=== PATIENT | female | born 1940 | race Caucasian/White ===

== ENCOUNTER → 2017-04-05 | Outpatient (CLI) | payer OTHER ==
[~2017-04-05] MED LIST: HYDC25 PO; LEVO25TA34 PO; LISI40TA PO; PRLSR20 PO
[2017-04-05 17:42] LABS: BASO % 0.3 %; BASO ABS # 0.03 K/uL (0-0.2); EOS % 1.7 %; HEMATOCRIT 39.3 % (37-47); HEMOGLOBIN 12.8 g/dL (12.0-16.0); IG# 0.03 K/uL (0.00-0.02); LYMPH % 25.2 %; LYMPH ABS # 2.97 K/uL (1.2-3.4); MEAN CORPUSCULAR HEMOGLOBIN 29.6 pg (25-34); MEAN CORPUSCULAR HGB CONC 32.6 g/dl (32-36); MEAN PLATELET VOLUME 10.8 fL (7.4-10.4); MONO % 7.1 %; MONO ABS # 0.84 K/uL (0.11-0.59); NEUT % 65.4 %; PLATELET COUNT 272 K/uL (130-400); RED CELL DISTRIBUTION WIDTH CV 13.5 % (11.5-14.5); WHITE BLOOD COUNT 11.77 K/uL (4.8-10.8)
[2017-04-05 18:11] LABS: ALBUMIN 4.1 gm/dl (3.4-5.0); ALT/SGPT 36 U/L (12-78); CREATININE 0.92 mg/dl (0.60-1.20); URIC ACID 6.5 mg/dl (2.6-7.2)
[2017-04-05 18:14] LABS: ALKALINE PHOSPHATASE 99 U/L (45-117); AST/SGOT 22 U/L (15-37); TOTAL PROTEIN 8.3 gm/dl (6.4-8.2); TRANSFERRIN 269 mg/dl (200-360)
== END | disposition home or self-care (01) ==
LOC: C.LAB1850 17:06
PROVIDERS: ATTEND Internal Medicine Rheumatology
DX: M10.9 Gout, unspecified (principal); M79.672 Pain in left foot; E79.0 Hyperuricemia without signs of inflammatory arthritis and tophaceous disease

== ENCOUNTER → 2017-04-12 | Outpatient (CLI) | payer OTHER ==
[~2017-04-12] MED LIST changes: +GADAVIST IV PRN
--- NOTE | 2017-04-12 14:01 | DIAGNOSTIC IMAGING REPORT ---
LEFT FOREFOOT MRI HISTORY: M10.9 [id number] Left foot pain TECHNIQUE: Multiplanar multisequence MRI of the left forefoot was performed both before and after the intravenous administration of contrast. COMPARISON STUDY: None. FINDINGS: Marrow edema within the mid to distal first metatarsal and proximal phalanx of the first toe. There is also marrow edema within the medial sesamoid bone at the head of the first metatarsal. There is soft tissue edema surrounding the first MTP joint. There is associated enhancement at the head of the first metatarsal and within the surrounding soft tissue edema. Moderate cartilage space narrowing with marginal osteophytes at the first MTP joint consistent with degenerative change. Questionable small erosion versus degenerative change at the head of the first metatarsal. This measures 4 mm and is best seen on coronal image 10. There is a bony bunion at the medial head of the first metatarsal. Mild dorsal subcutaneous edema within the forefoot. The flexor and extensor tendons are intact. The remaining visualized osseous structures of the forefoot are unremarkable. IMPRESSION: 1. Marrow and soft tissue edema surrounding the first MTP joint with associated enhancement. There is a questionable 4 mm erosion at the head of the first metatarsal. These findings are nonspecific but could be due to long-standing degenerative change or possibly an inflammatory arthropathy such as gout. 2. No fracture or dislocation within the forefoot. Electronically signed by: Swapnil Webb M.D. 04/12/2017 1:59 PM Dictated Date/Time: 04/12/2017 1:50 PM
== END | disposition home or self-care (01) ==
LOC: C.MRI 12:20
PROVIDERS: ATTEND Internal Medicine Rheumatology
DX: M10.9 Gout, unspecified (principal); M79.672 Pain in left foot

== ENCOUNTER 2020-02-05 05:07 | Inpatient (IN) ==
--- NOTE | 2020-01-23 09:30 | PAT Medication Instructions ---
Medication Instructions Date of Service January 23, 2020 Home Medications apple cider vinegar 500 mg PO BID ascorbic acid (vitamin C) [Vitamin C] 250 mg PO BID aspirin [Aspir-81] 81 mg PO QAM calcium carbonate [Calcium 500] 500 mg PO BID lisinopril 40 mg PO QAM multivitamin 1 tab PO BID omega 1-dqe-euk-fish oil [Fish Oil] 1 cap PO BID omeprazole 20 mg PO QAM turmeric 400 mg PO QAM STOP taking 2 weeks before surgery (or as soon as possible if surgery is within 2 weeks) apple cider vinegar 500 mg PO BID omega 2-jyc-dli-fish oil [Fish Oil] 1 cap PO BID turmeric 400 mg PO QAM DO NOT take the morning of surgery ascorbic acid (vitamin C) [Vitamin C] 250 mg PO BID calcium carbonate [Calcium 500] 500 mg PO BID lisinopril 40 mg PO QAM multivitamin 1 tab PO BID Take morning of surgery With a small sip of water, OTHERWISE NOTHING TO EAT OR DRINK AFTER MIDNIGHT: omeprazole 20 mg PO QAM Take evening before surgery ascorbic acid (vitamin C) [Vitamin C] 250 mg PO BID calcium carbonate [Calcium 500] 500 mg PO BID multivitamin 1 tab PO BID Other Notes If you have any questions please call us at [phone] or [phone] or [phone] or [phone]
--- NOTE | 2020-01-24 08:40 | History & Physical Report ---
Date of Service January 24, 2020 Date of Surgery: 02/04/20 procedure: Right Total Knee Arthroplasty Assessment & Plan (1) Arthritis of right knee: Risks and benefits of procedure discussed in detail today, patient would like to proceed with a Right total knee replacement at [facility] as scheduled. will obtain medical clearance from Dr Suresh prior to surgery as well as obtain PATs at [facility]. Will place on ASA 81mg po bid x 1 month post op, f/u 2 weeks post op for routine post-operative care and x-ray, sooner if having any problems. will make arrangements for HHPT at the time of discharge. At this point in time, has failed conservative measures and would like to proceed with surgical intervention. The risks and benefits have been discussed including, but not limited to, risk of infection, nerve injury, stiffness, loss of motion, failure to improve, etc. Reasonable outcomes and options of treatment were discussed. An explanation of appropriate alternatives to the procedure that may be advantageous were discussed and their risks and benefits, as well as the risks and benefits of not proceeding with treatment. I offered to answer any additional inquiries concerning the treatment involved. All the patient's questions were answered. The patient is agreeable, understanding of the treatment plan and alternatives, and wishes to proceed with the treatment plan. History of Present Illness Chief Complaint: Right knee pain Primary Care Provider: Madeline Suresh MD Roopa is a 79 year old female who complains of Right knee pain, presents for pre-op evaluation prior to a Right total knee replacement by dr Daniels at [facility]. She complains of pain, crepitus, decreased range of motion, instability and st iffness in her right knee. she states that the symptoms have been chronic and non-traumatic. Currently the patient states that the symptoms are moderate- severe. The pain is described as aching, sharp and throbbing. The symptoms are aggravated by ascending stairs, daily activities, first steps while awake walking. She is unable to NSAIDs, Aleve causes heart palpitations. She has been treated with previous visco and cortisone injections in the past without much relief. Allergies Allergy/AdvReac Type Severity Reaction Status Date / Time Penicillins Allergy Mild HIVES, Verified 01/15/20 13:12 TROUBLE BREATHING allopurinol Allergy Unknown TOTAL BODY Verified 01/15/20 13:12 RASH, FLUSHING amoxicillin Allergy Unknown HIVES Verified 01/15/20 13:12 febuxostat Allergy Unknown EYES Verified 01/15/20 13:12 SWELLED SHUT naproxen Allergy Unknown PALPATATION Verified 01/15/20 13:12 S Sulfa (Sulfonamide Allergy Unknown PT UNSURE Verified 01/15/20 13:12 Antibiotics) OF RXN lactose AdvReac Intermediate Gastrointestinal Verified 01/15/20 13:12 Upset nickel AdvReac Mild Redness of Verified 01/15/20 13:12 Skin Home Medications Home Medications Medication Instructions Recorded Confirmed Type apple cider vinegar 500 mg PO BID 01/15/20 01/15/20 History ascorbic acid (vitamin C) [Vitamin 250 mg PO BID 01/15/20 01/15/20 History C] aspirin [Aspir-81] 81 mg PO QAM 01/15/20 01/15/20 History calcium carbonate [Calcium 500] 500 mg PO BID 01/15/20 01/15/20 History lisinopril 40 mg PO QAM 01/15/20 01/15/20 History multivitamin 1 tab PO BID 01/15/20 01/15/20 History omega 3-aqb-fap-fish oil [Fish Oil] 1 cap PO BID 01/15/20 01/15/20 History omeprazole 20 mg PO QAM 01/15/20 01/15/20 History turmeric 400 mg PO QAM 01/15/20 01/15/20 History Past Med/Surg History Medical History DVT (deep venous thrombosis) RLE (15+ years ago) after long travel Fatty liver Gout Hiatal hernia sliding Hypertension Hypothyroidism euthyroid off meds, under surveillance Kidney cysts under surveillance Myocardial Infarction possible [place] 10+ years ago, medically managed Neuropathy of both feet Osteoarthritis Osteoporosis Spinal stenosis Torn rotator cuff right Surgical History History of bilateral tubal ligation History of bladder surgery sling History of hysterectomy History of myringotomy right History of surgery on left wrist History of tonsillectomy History of tooth extraction Hx of cervical spine surgery 3 DISCS REMOVED THEN SPACERS/CAGE> 2011 ROM UP AND DOWN IS OK. SIDE TO SIDE IS LIMITED Hx of elbow surgery LEFT Social History Smoking Status: Never smoker Second Hand Exposure: No; Do You Dip or Chew Tobacco: No; Tobacco Cessation Education Requested by Patient: No Hx Alcohol Use: Yes Alcohol type: wine Hx Substance Use: No Preferred Language: Polish Communication Ability: Effective Manager Of Organizational Development Required: No Beliefs That Will Affect Care: None Current Living Situation: Alone Other Information That Helps Us Care for You: No Feels Safe at Home: Yes Safety Concerns: Feels Safe At This Time Assistive Devices: Cane, Denture - Upper, Glasses and Walker Review of Systems Review of Systems: All systems reviewed & are unremarkable except as noted in HPI & below Constitutional: no fever, no chills and no sweats Respiratory: no cough and no dyspnea Cardiovascular: no chest pain, no dyspnea and no orthopnea Gastrointestinal: no abdominal pain, no nausea and no vomiting Musculoskeletal: as per Subjective / HPI Physical Exam Physical Exam: Ht: 5ft WT: 75.75kg BP: 144/84 Pulse: 118 Constitutional: WD/WN, vitals as above no acute distress Respiratory: normal respiratory effort, lungs clear to auscultation no respiratory distress, no labored breathing and does not use accessory muscles Cardiovascular: RRR, no murmur, no edema Gastrointestinal (Abdomen): normal bowel sounds, soft, nontender, no hepatosplenomegaly Musculoskeletal: Knee: + knee abnormal to inspection (Right Knee: ), + effusion (+1 effusion), + limited ROM of knee (ROM 0/3/110), + knee ROM with crepitation, + joint line tenderness (medial joint line) and + Venessa's sign positive; no deformity, no skin erythema, no ecchymosis, no valgus laxity, no varus laxity, anterior drawer test negative, Andrey's sign negative and pivot shift test negative Results & Data Results & Data ([facility]) Laboratory Results Laboratory Results WBC 9.26 K/uL (4.8-10.8) 01/24/20 12:20 RBC 4.68 M/uL (4.2-5.4) 01/24/20 12:20 Hgb 13.4 g/dL (12.0-16.0) 01/24/20 12:20 Hct 42.6 % (37-47) 01/24/20 12:20 MCV 91.0 fL (80-100) 01/24/20 12:20 MCH 28.6 pg (25-34) 01/24/20 12: MCHC 31.5 g/dL (32-36) L 01/24/20 12: RDW Std Deviation 44.2 fL (36.4-46.3) 01/24/20 12: RDW Coeff of Raul 13.4 % (11.5-14.5) 01/24/20 12: Plt Count 286 K/uL (130-400) 01/24/20 12:20 MPV 11.0 fL (7.4-10.4) H 01/24/20 12: Immature Gran % (Auto) 0.2 % 01/24/20 12: Neut % (Auto) 64.5 % 01/24/20 12: Lymph % (Auto) 23.9 % 01/24/20 12: Scurry % (Auto) 9.0 % 01/24/20 12: Eos % (Auto) 2.2 % 01/24/20 12:20 Baso % (Auto) 0.2 % 01/24/20 12: Neut # (Auto) 5.98 K/uL (1.4-6.5) 01/24/20 12: Lymph # (Auto) 2.21 K/uL (1.2-3.4) 01/24/20 12:20 Scurry # (Auto) 0.83 K/uL (0.11-0.59) H 01/24/20 12:20 Eos # (Auto) 0.20 K/uL (0-0.5) 01/24/20 12:20 Baso # (Auto) 0.02 K/uL (0-0.2) 01/24/20 12: Immature Gran # (Auto) 0.02 K/uL (0.00-0.02) 01/24/20 12: PT 10.6 Seconds (9.0-12.0) 01/24/20 12: INR 1.0 (0.9-1.1) 01/24/20 12: APTT 28.7 Seconds (21.0-31.0) 01/24/20 12: PTT Ratio 1.0 01/24/20 12:20 Sodium 141 mmol/L (136-145) 01/24/20 12:20 Potassium 4.2 mmol/L (3.5-5.1) 01/24/20 12:20 Chloride 105 mmol/L (98-107) 01/24/20 12:20 Carbon Dioxide 29 mmol/L (21-32) 01/24/20 12:20 Anion Gap 7.0 (3-11) 01/24/20 12:20 BUN 12 mg/dl (7-18) 01/24/20 12:20 Creatinine 0.94 mg/dl (0.6-1.2) 01/24/20 12:20 Est Cr Clr Drug Dosing 44.7 ml/min 01/24/20 12:20 Est GFR ( Amer) 67.3 01/24/20 12:20 Est GFR (Non-Af Amer) 58.1 01/24/20 12:20 BUN/Creatinine Ratio 12.4 (10-20) 01/24/20 12:20 Glucose 85 mg/dl (70-99) 01/24/20 12:20 Estimat Average Glucose 120 mg/dl 01/24/20 12:20 Hemoglobin A1c 5.8 % (4.5-5.6) H 01/24/20 12:20 Calcium 9.9 mg/dl (8.5-10.1) 01/24/20 12:20 Albumin 4.0 gm/dl (3.4-5.0) 01/24/20 12:20 Urine Color Yellow 01/24/20 12:20 Urine Appearance Clear (Clear) 01/24/20 12:20 Urine pH 6.5 (4.5-7.5) 01/24/20 12:20 Ur Specific [place] 1.006 (1.000-1.030) 01/24/20 12:20 Urine Protein Negative (Negative) 01/24/20 12:20 Urine Glucose (UA) Negative (Negative) 01/24/20 12:20 Urine Ketones Negative (Negative) 01/24/20 12:20 Urine Blood Negative (Negative) 01/24/20 12:20 Urine Nitrite Negative (Negative) 01/24/20 12:20 Urine Bilirubin Negative (Negative) 01/24/20 12:20 Urine Urobilinogen Negative (Negative) 01/24/20 12:20 Ur Leukocyte Esterase Negative (Negative) 01/24/20 12:20 Blood Type O Positive 01/24/20 12:20 Antibody Screen NEGATIVE 01/24/20 12:20 Diagnostic Findings Right Knee X-ray: Right knee series showing advanced degenerative changes to the right knee, narrowing of the medial compartment and patello-femoral joint with patellar spurring noted, findings showing joint space narrowing of the medial compartment and patello-femoral joint, osteophyte formation and subchondral sclerosis noted. overall varus alignment. no acute bony pathology noted.
--- NOTE | 2020-01-24 11:21 | Anesthesiology Consultation ---
Date of Service January 24, 2020 Assessment & Plan (1) Encounter for pre-operative examination: - Per assessment on 01/23: Travel screen- Travel to [place] for doctor appt. Uses PPE. No known COVID-19 positive contacts or current COVID-19 related symptoms. Surgeon arranging preop COVID testing. Awaiting results. - Possible difficult intubation: d/t decreased cervical extension s/p cervical fusion + anatomy Chart Review Chart Review: Acceptable Risk for Surgery and Patient seen in Pre Admission Testing Teaching & Discussion Pre-Anesthesia Teaching/Discussion Notes: Instructed NPO after midnight before surgery,except medications with 15 cc of water. Medication instructions provided according to the PAT guidelines. History Surgery Operation Date: 02/04/20 14:35 Proposed Procedures p Right Total Knee Arthroplasty - El Daniels DO Height/Weight Height: 5 ft Weight: 75.2 kg Allergies Allergy/AdvReac Type Severity Reaction Status Date / Time Penicillins Allergy Mild hives, Verified 01/24/20 15:15 dyspnea allopurinol Allergy Unknown diffuse Verified 01/24/20 15:15 body rash, flushing amoxicillin Allergy Unknown hives Verified 01/24/20 15:15 febuxostat Allergy Unknown eyes Verified 01/24/20 15:15 swelled shut Sulfa (Sulfonamide Allergy Unknown unknown Verified 01/24/20 15:15 Antibiotics) reaction lactose AdvReac Intermediate GI upset Verified 01/24/20 15:15 nickel AdvReac Mild skin Verified 01/24/20 15:15 redness naproxen AdvReac Unknown palpitation Verified 01/24/20 15:15 s Medications Home Medications Medication Instructions Recorded Confirmed Last Taken apple cider vinegar 500 mg PO BID 01/15/20 01/15/20 Unknown ascorbic acid (vitamin C) [Vitamin 250 mg PO BID 01/15/20 01/15/20 Unknown C] aspirin [Aspir-81] 81 mg PO QAM 01/15/20 01/15/20 Unknown calcium carbonate [Calcium 500] 500 mg PO BID 01/15/20 01/15/20 Unknown lisinopril 40 mg PO QAM 01/15/20 01/15/20 Unknown multivitamin 1 tab PO BID 01/15/20 01/15/20 Unknown omega 6-swk-nxk-fish oil [Fish Oil] 1 cap PO BID 01/15/20 01/15/20 Unknown omeprazole 20 mg PO QAM 01/15/20 01/15/20 Unknown turmeric 400 mg PO QAM 01/15/20 01/15/20 Unknown Past Medical History Medical History DVT (deep venous thrombosis) RLE (15+ years ago) after long travel Fatty liver Gout Hiatal hernia sliding Hypertension Hypothyroidism euthyroid off meds, under surveillance Kidney cysts under surveillance Myocardial Infarction possible [place] 10+ years ago, medically managed Neuropathy of both feet Osteoarthritis Osteoporosis Spinal stenosis Torn rotator cuff right Exercise / Class Metabolic Activity III < 4 Walking/Shop/Light housework (one flight of stairs (no chest pain, + rare SOB)) Past Surgical History Surgical History History of bilateral tubal ligation History of bladder surgery sling History of hysterectomy History of myringotomy right History of surgery on left wrist History of tonsillectomy History of tooth extraction Hx of cervical spine surgery discectomy x3 levels + CAGE (2011) Hx of elbow surgery LEFT Past Anesthesia History Other Patients states that 25 years ago, she had bladder tac procedure at [place]- patient states she was unable to move/respond after anesthesia emergence- per patient, she was told that she was "given too much anesthesia." Patient has had subsequent surgeries/anesthesia including cervical fusion without similar type of reaction/no issues (no anesthesia records available). Mother- post-op mental status changes- ? worsening of dementia History of PONV No Hx of PONV and Hx of Motion Sickness (childhood) Social History Smoking Status: Never smoker Do You Dip or Chew Tobacco: No Hx Alcohol Use: Yes Alcohol type: wine alcohol intake frequency: holidays/special occasions only Hx Substance Use: No substance use type: does not use Review of Systems Patient denies chest pain, shortness of breath, fever, chills, cough, wheezing, palpitations. Physical Exam Vital Signs VITALS BP 145/81 P 98 TEMP 98.4 SP02 98%RA RESP 16 PHYSICAL Decreased cervical extension s/p cervical fusion Full TMJ range of motion. TMD 2.5 finger breaths (small chin) Mallampati Score 4 (small oral opening) Dentition: 5 teeth on lower remaining, + lower partial, full upper plate Lungs: clear throughout to auscultation Cardiac: regular rate and rhythm, no murmurs noted Spine: normal Carotid arteries: negative bruit Extremities: no edema Testing Laboratory Results 01/24/20 12:20 01/24/20 12:20 PT 10.6 Seconds (9.0-12.0) 01/24/20 12:20 INR 1.0 (0.9-1.1) 01/24/20 12:20 APTT 28.7 Seconds (21.0-31.0) 01/24/20 12:20 Hemoglobin A1c 5.8 % (4.5-5.6) H 01/24/20 12:20 Urine Color Yellow 01/24/20 12:20 Urine Appearance Clear (Clear) 01/24/20 12:20 Urine pH 6.5 (4.5-7.5) 01/24/20 12:20 Ur Specific [place] 1.006 (1.000-1.030) 01/24/20 12:20 Urine Protein Negative (Negative) 01/24/20 12:20 Urine Glucose (UA) Negative (Negative) 01/24/20 12:20 Urine Ketones Negative (Negative) 01/24/20 12:20 Urine Nitrite Negative (Negative) 01/24/20 12:20 Ur Leukocyte Esterase Negative (Negative) 01/24/20 12:20 Blood Type O Positive 01/24/20 12:20 Antibody Screen NEGATIVE 01/24/20 12:20 Electrocardiogram Date: 01/24/20 ST at 102. RBBB. Chest X-Ray Date: 01/24/20 FINDINGS: PA and lateral chest radiographs are obtained. No prior studies are available for comparison at the time of dictation. The heart is top normal for projection. Nonspecific interstitial thickening is likely chronic. There is mild bibasilar scarring/atelectasis. No airspace consolidation or pleural effusion is identified. There is no pneumothorax. The skeletal structures are osteopenic. The bony thorax appears intact. Fusion hardware is seen in the lower cervical spine. Degenerative change and mild scoliosis is noted in the thoracolumbar spine. Cholecystectomy clips are seen in the right upper quadrant. IMPRESSION: No active disease in the chest.
--- NOTE | 2020-01-24 12:45 | XRay Report ---
TWO VIEW CHEST CLINICAL HISTORY: Preoperative examination. FINDINGS: PA and lateral chest radiographs are obtained. No prior studies are available for compariso n at the time of dictation. The heart is top normal for projection. Nonspecific interstitial thicken ing is likely chronic. There is mild bibasilar scarring/atelectasis. No airspace consolidation or ple ural effusion is identified. There is no pneumothorax. The skeletal structures are osteopenic. The ramy ny thorax appears intact. Fusion hardware is seen in the lower cervical spine. Degenerative change an d mild scoliosis is noted in the thoracolumbar spine. Cholecystectomy clips are seen in the right upp er quadrant. IMPRESSION: No active disease in the chest. ACT 112: Negative or not required by law. Electronically signed by: Mykel Stephens M.D. 01/24/2020 12:43 PM
[2020-01-24 13:45] LABS: Basophils # (auto) 0.02 K/uL (0-0.2); Basophils % (auto) 0.2 %; Eosinophils % (auto) 2.2 %; Hematocrit (blood only) 42.6 % (37-47); Hemoglobin 13.4 g/dL (12.0-16.0); Immature Granulocytes # (auto) 0.02 K/uL (0.00-0.02); Immature Granulocytes % (auto) 0.2 %; Lymphocytes # (auto) 2.21 K/uL (1.2-3.4); Lymphocytes % (auto) 23.9 %; Mean Corpuscular Hemoglobin 28.6 pg (25-34); Mean Corpuscular Hgb Conc 31.5 g/dL (32-36); Monocytes # (auto) 0.83 K/uL (0.11-0.59); Neutrophils # (auto) 5.98 K/uL (1.4-6.5); Neutrophils % (auto) 64.5 %; Platelet Count 286 K/uL (130-400); RDW Coefficient of Variation 13.4 % (11.5-14.5); RDW Standard Deviation 44.2 fL (36.4-46.3); Red Blood Count 4.68 M/uL (4.2-5.4); White Blood Count 9.26 K/uL (4.8-10.8)
[2020-01-24 13:49] LABS: Appearance Urine Clear (Clear); Bilirubin Urine Negative (Negative); Blood Urine Negative (Negative); Color Urine Yellow; Glucose Urine UA Negative (Negative); Ketones Urine Negative (Negative); Leukocyte Esterase Urine Negative (Negative); Nitrite Urine Negative (Negative); Protein Urine Negative (Negative); Specific Gravity Urine 1.006 (1.000-1.030); Urobilinogen Urine Negative (Negative); pH Urine 6.5 (4.5-7.5)
[2020-01-24 13:55] LABS: Partial Thromboplastin Time 28.7 Seconds (21.0-31.0); Prothrombin Time 10.6 Seconds (9.0-12.0)
[2020-01-24 14:04] LABS: BUN Creatinine Ratio 12.4 (10-20); Calcium 9.9 mg/dl (8.5-10.1); Creatinine Clr Calc Pharmacy 44.7 ml/min; Est GFR (African American) 67.3; Est GFR (Non-African American) 58.1; Potassium 4.2 mmol/L (3.5-5.1)
[2020-01-24 14:52] LABS: Estimated Average Glucose 120 mg/dl; Hemoglobin A1C 5.8 % (4.5-5.6)
--- NOTE | 2020-01-24 18:20 | Electrocardiogram Report ---
Test Reason : Blood Pressure : / mmHG Vent. Rate : 102 BPM Atrial Rate : 102 BPM P-R Int : 156 ms QRS Dur : 128 ms QT Int : 370 ms P-R-T Axes : 076 019 063 degrees QTc Int : 482 ms Sinus tachycardia Right bundle branch block Abnormal ECG No previous ECGs available Confirmed by Julio C Mace ([id number]) on 01/24/2020 6:20:22 PM Referred By: El Daniels Confirmed By:Jeremy Mace
[2020-02-05] MEDS ORDERED: GABAPENTIN 300 MG CAP PO SCH (06:00)
[2020-02-05] MEDS ORDERED: METOCLOPRAMIDE HCL 10 MG TABLET PO SCH (06:00)
[2020-02-05] MEDS ORDERED: TRANEXAMIC ACID 1,000 MG **IV Intra-op IV SCH (06:00)
[2020-02-05] MEDS ORDERED: LR 500ML BOLUS, THEN 15ML/HR IV SCH (06:00)
[2020-02-05] MEDS ORDERED: dexAMETHasone 4 MG TAB PO SCH (06:00)
[2020-02-05] MEDS ORDERED: VANCOMYCIN HCL 1,250 MG in SODIUM CHLORIDE 0.9% 250 ML IV SCH (06:00)
[2020-02-05] MEDS ORDERED: FAMOTIDINE 20 MG TAB PO SCH (06:00)
[2020-02-05] MEDS ORDERED: ACETAMINOPHEN 500 MG TAB PO SCH (06:00)
[2020-02-05] MEDS ORDERED: TRANEXAMIC ACID 1,000 MG **IV Pre-op IV SCH (06:00)
[2020-02-05] MEDS ORDERED: BUPIVACAINE 0.5 % 5 MG/1 ML PF 10ML VIAL ONE (06:25)
[2020-02-05] MEDS ORDERED: BUPIVACAINE 0.25% 30 ML VIAL ONE (06:26)
[2020-02-05] MEDS ORDERED: ATROPINE SULFATE 0.1 MG/ML 10ML SYR IV PRN (06:28)
[2020-02-05] MEDS ORDERED: ONDANSETRON INJ 2 MG/ML 2 ML VIAL IV PRN ×2 (06:28→09:57)
[2020-02-05] MEDS ORDERED: fentaNYL citrate 100 MCG/2 ML VIAL IV PRN (06:28)
[2020-02-05] MEDS ORDERED: ePHEDrine sulfate 50 MG/ML AMP IV PRN (06:28)
[2020-02-05] MEDS ORDERED: BACITRACIN INJ 50,000 UNIT VIAL ONE (06:32)
[2020-02-05] MEDS ORDERED: MIDAZOLAM HCL 1 MG/ML 2ML VIAL ONE (06:41)
[2020-02-05] MEDS ORDERED: fentaNYL citrate 100 MCG/2 ML VIAL ONE (06:41)
[2020-02-05] MEDS ORDERED: ROPIVACAINE 0.5% HCL/PF 150 MG, BUPIVACAINE 0.75% MPF 20 ML, EPINEPHrine 30MG/30ML (OR ... INFIL SCH (07:00)
--- NOTE | 2020-02-05 07:04 | History & Physical Bridge Note ---
Date of Service February 05, 2020 History & Physical Bridge Note I have examined the patient, reviewed the History & Physical and in the interval since the performance of the History & Physical I have noted the following changes of clinical significance: no changes noted
[2020-02-05] MEDS ORDERED: PROPOFOL IV EMULSION 10 MG/ML 20 ML VIAL IV ONE (08:02)
--- NOTE | 2020-02-05 08:10 | Operative Report ---
Post Operative Report Pre & Post Diagnosis Operation Date: 02/05/20 07:00 Pre-Op Diagnosis: Unilateral Primary Osteoarthritis, Right Knee Post-Op Diagnosis: Unilateral Primary Osteoarthritis, Right Knee I identified the patient and participated in the time-out.: Yes Procedure Operation Date: 02/05/20 07:00 Actual Procedures p Right Total Knee Arthroplasty, Cemented(Right) -utilized [employer] 2 nonblock total knee arthroplasty size 5 femur 3 tibia 9 polyethylene 29 oval patella El Daniels DO Surgeon El Daniels DO Photostatic Copy Maker Rene GARZA Estimated Blood Loss 5 Findings Consistent with Post-Op Diagnosis Severe end-stage tricompartmental degenerative joint disease 10 degree flexion contracture moderate osteophytes medial and lateral joint lateral with eburnated [id number] subchondral sclerosis subchondral cystic changes moderate large effusion Specimens Bone and cartilage Drains Medium bore Hemovac Anesthesia Type MAC Spinal Regional Complications none Disposition Accompanied Patient To Recovery: No Disposition: Recovery Room Indications Patient presents for right total knee arthroplasty exam attempted conservative measures including physical therapy anti-inflammatories relative rest activity modification corticosteroid injections viscosupplementation the above intraoperative findings were noted. Description of Procedure After proper prepping and draping of the Right lower extremity anterior midline incision was made over the region of the extensor extensor mechanism after meticulous hemostasis was obtained and maintained in subcutaneous tissues a medial parapatellar incision was made The patella was subluxed lateralward the medial lateral gutter were cleaned from any hypertrophic synovitis and scar tissue of the distal femoral block was placed and the distal femoral osteotomy cut was made subsequently the chamfers anterior and posterior osteotomy cuts were made utilizing the 4-in-1 block the tibia was subsequently subluxed anteriorward medial and ateral meniscal remnants were excised in their entirety remnants of the anterior and posterior cruciate ligaments were excised in their entirety excellent exposure of the proximal tibia was obtained the tibial osteotomy guide was placed on the proximal tibial osteotomy cut was made once again the knee was irrigated with copious amounts of sterile saline solution the patella was subsequently everted lateralward thickened scar tissue around the patella was removed the patella was subsequently cut utilizing a freehand technique and was drilled prepared for final preparation and placement of patella socially flexion-extension gaps were checked and the equal and symmetric trials were placed to the appropriate femoral and tibial trials with poly-spacer being placed for equal flexion and extension gaps and full range of motion including extension to 0 and flexion to 140 the trial components after having been taken to recovery range of motion was subsequently removed meticulous hemostasis was obtained and maintained subsequently a knee block injection of joint cocktail including ropivacaine 0.5% 150 mg. Bupivacaine 0.5% epinephrine 1-200,030 mL's toradol 30 mg dexamethasone 4 mg ketamine 10 mg clonidine 100 micrograms normal saline solution 30 mg was infiltrated into the soft tissues of the posterior knee medial lateral gutters and periosteal synovium special attention was paid to protect neurovascular structures at all times subsequently trial components having been removed the knee was irrigated with sterile saline solution. debris was removed the proximal tibia was subsequently prepared and was made ready for the placement of the tibial component tibial component was also cemented and tamped into position the femoral component was subsequently placed and cemented in the position the patellar component was subsequently cemented in position because hemostasis once again obtained and maintained wound having been thoroughly irrigated with debridement and debridement lavage was performed as well as a medial parapatellar incision closed with #1 Vicryl in interrupted fashion subcutaneous was closed with #2 Vicryl skin was closed with skin clips. PA-C was necessary for prepping and drapping as well as wound closure of deep fascia Sub cutaneous tissue and skin and was necessary for the case. A sterile compressive dressing was placed patient was taken to recovery in stable condition of report dictated by Jeremiah I attest to the content of the Intraoperative Record and any orders documented therein. Any exceptions are noted below. I attest to the content of the Intraoperative Record and any orders documented therein. Any exceptions are noted below.
--- NOTE | 2020-02-05 09:31 | XRay Report ---
XR knee RT 1 or 2V routine CLINICAL HISTORY: Surgical Post Op COMPARISON: Right knee radiographs October 12, 2007. FINDINGS: Alignment of the right knee arthroplasty is anatomic. There is no periprosthetic fracture or unexpected radiopaque foreign body. Drains are in place. IMPRESSION: Expected findings following total right knee arthroplasty. ACT 112: Negative or not required by law. Electronically signed by: Too Barillas M.D. 02/05/2020 9:30 AM
[2020-02-05] MEDS ORDERED: HYDROmorphone INJ 1 MG/ML SYRINGE IV PRN (09:57)
[2020-02-05] MEDS ORDERED: METOCLOPRAMIDE HCL INJ 5 MG/ML 2 ML VIAL IV PRN (09:57)
[2020-02-05] MEDS ORDERED: bisacodyL 10 MG SUPP PR PRN (09:57)
[2020-02-05] MEDS ORDERED: NALOXONE HCL 0.4 MG/1 ML VIAL/CARP IV PRN (09:57)
[2020-02-05] MEDS ORDERED: diphenhydrAMINE Capsule 25 MG CAP PO PRN (09:57)
[2020-02-05] MEDS ORDERED: MAGNESIUM HYDROXIDE SUSP 30 ML UDC PO PRN (09:57)
[2020-02-05] MEDS: SODIUM CHLORIDE 0.9% 1000ML 1,000 ML IV SCH ×2 (10:06→21:17)
[2020-02-05] MEDS: CALCIUM CARBONATE 1250MG TAB PO SCH ×2 (11:00→21:09)
[2020-02-05] MEDS: ASCORBIC ACID 500 MG TAB PO SCH ×2 (11:00→21:09)
[2020-02-05] MEDS: DOCUSATE SODIUM 100 MG CAP PO SCH ×2 (11:12→21:09)
[2020-02-05] MEDS: MULTIVITAMIN TAB PO SCH (11:12)
[2020-02-05] MEDS: KETOROLAC TROMETHAMINE 15 MG/ML VIAL IV SCH ×3 (11:12→22:47)
[2020-02-05] MEDS: lisinopril 40 MG TAB PO SCH (11:12)
[2020-02-05] MEDS: ASPIRIN 81 MG ECTAB PO SCH ×2 (11:12→21:09)
[2020-02-05] MEDS: CLINDAMYCIN 600 MG in DEXTROSE 5% 50 ML IV SCH ×2 (13:39→22:47)
[2020-02-05] MEDS: ACETAMINOPHEN 500 MG TAB PO SCH ×2 (13:39→22:47)
--- NOTE | 2020-02-05 14:41 | Anesthesiology Progress Note ---
Date of Service February 05, 2020 Anesthesia Post Procedure Vital Signs Vital Signs: Temp Pulse Pulse Resp BP Pulse Ox 02/05/20 12:54 96 H 16 143/84 H 94 02/05/20 11:55 98 H 16 147/74 H 96 02/05/20 10:59 36.7 C 99 H 16 151/86 H 96 02/05/20 10:25 36.5 C 86 16 146/84 H 99 02/05/20 09:55 36.5 C 81 16 143/82 H 96 02/05/20 09:40 73 16 139/79 99 02/05/20 09:30 36.3 C L 62 15 133/88 98 02/05/20 09:20 86 16 131/79 93 02/05/20 09:10 84 19 134/79 93 02/05/20 09:00 95 H 15 131/69 97 02/05/20 08:49 36.1 C L 94 H 16 135/72 97 02/05/20 07:07 105 H 20 178/95 H 95 02/05/20 06:00 36.7 C 105 H 18 221/20 H 95 Pain Intensity Right Knee: Pain Intensity: 0 Transfer of Care Handoff Completed per policy Notes Mental Status: alert / awake / arousable and participated in evaluation Patient Amnestic to Procedure: Yes Nausea / Vomiting: adequately controlled Pain: adequately controlled Airway Patency, RR, SpO2: stable & adequate BP & HR: stable & adequate Hydration State: stable & adequate Neuraxial Anesthesia: was administered and sensory block is resolving Anesthetic Complications: no major complications apparent and Pt Satisfied with anesthetic care
[2020-02-05] MEDS: SENNA 8.6 MG TAB PO SCH (21:09)
[2020-02-06] MEDS: ACETAMINOPHEN 500 MG TAB PO SCH ×3 (05:37→22:59)
[2020-02-06] MEDS: KETOROLAC TROMETHAMINE 15 MG/ML VIAL IV SCH (05:38)
[2020-02-06] MEDS: SODIUM CHLORIDE 0.9% 1000ML 1,000 ML IV SCH (06:13)
[2020-02-06 07:31] LABS: Hematocrit (blood only) 31.4 % (37-47); Hemoglobin 10.1 g/dL (12.0-16.0); Mean Corpuscular Hemoglobin 28.7 pg (25-34); Mean Corpuscular Hgb Conc 32.2 g/dL (32-36); Mean Corpuscular Volume 89.2 fL (80-100); Mean Platelet Volume 10.6 fL (7.4-10.4); Platelet Count 270 K/uL (130-400); RDW Coefficient of Variation 13.1 % (11.5-14.5); RDW Standard Deviation 42.3 fL (36.4-46.3); Red Blood Count 3.52 M/uL (4.2-5.4); White Blood Count 14.88 K/uL (4.8-10.8)
[2020-02-06 08:07] LABS: BUN Creatinine Ratio 23.1 (10-20); Calcium 9.2 mg/dl (8.5-10.1); Creatinine Clr Calc Pharmacy 43.2 ml/min; Est GFR (Non-African American) 55.3; Potassium 4.1 mmol/L (3.5-5.1)
--- NOTE | 2020-02-06 08:30 | Orthopedic Progress Note ---
Date of Service February 06, 2020 Assessment & Plan (1) Arthritis of right knee: Postop day one status post right total knee arthroplasty. Mild leukocytosis. Patient is asymptomatic at this time. Likely secondary to preop steroids and surgical stress. PT/OT protocols. Weightbearing as tolerated. DVT prophylaxis-aspirin p.o. twice daily, SCDlucio, LOC jackson. Pain management as written. DC planning-patient is attempting to go to [facility]. Her backup will be home health services. Admission and Anticipated Discharge Date Admission Date: February 05, 2020 Subjective Postop day one Patient is ambulating with a walker in her room. No complaints this morning. He is having some mild thigh pain likely secondary from her tourniquet. Otherwise pain is controlled. Denies any shortness of breath, chest pain, lightheadedness. Physical Exam Physical Exam: Dressings are clean, dry, and intact. Calves are soft and nontender. Neurovascular is intact. Toes are mobile. Hemovac drainage was 50 mL from the previous shift. Results & Data ([facility]) Vital Signs (Past 12 Hours) Vital Signs Temp Pulse Resp BP BP Pulse Ox 02/06/20 03:59 36.7 C 78 14 131/75 92 02/05/20 23:33 36.7 C 79 14 131/75 93 Laboratory Results Laboratory Results WBC 14.88 K/uL (4.8-10.8) H 02/06/20 07:07 RBC 3.52 M/uL (4.2-5.4) L 02/06/20 07:07 Hgb 10.1 g/dL (12.0-16.0) L 02/06/20 07:07 Hct 31.4 % (37-47) L 02/06/20 07:07 MCV 89.2 fL (80-100) 02/06/20 07:07 MCH 28.7 pg (25-34) 02/06/20 07:07 MCHC 32.2 g/dL (32-36) 02/06/20 07:07 RDW Std Deviation 42.3 fL (36.4-46.3) 02/06/20 07:07 RDW Coeff of Raul 13.1 % (11.5-14.5) 02/06/20 07:07 Plt Count 270 K/uL (130-400) 02/06/20 07:07 MPV 10.6 fL (7.4-10.4) H 02/06/20 07:07 Immature Gran % (Auto) 0.2 % 01/24/20 12:20 Neut % (Auto) 64.5 % 01/24/20 12:20 Lymph % (Auto) 23.9 % 01/24/20 12:20 [place] % (Auto) 9.0 % 01/24/20 12:20 Eos % (Auto) 2.2 % 01/24/20 12:20 Baso % (Auto) 0.2 % 01/24/20 12:20 Neut # (Auto) 5.98 K/uL (1.4-6.5) 01/24/20 12:20 Lymph # (Auto) 2.21 K/uL (1.2-3.4) 01/24/20 12:20 Gibson # (Auto) 0.83 K/uL (0.11-0.59) H 01/24/20 12:20 Eos # (Auto) 0.20 K/uL (0-0.5) 01/24/20 12:20 Baso # (Auto) 0.02 K/uL (0-0.2) 01/24/20 12:20 Immature Gran # (Auto) 0.02 K/uL (0.00-0.02) 01/24/20 12:20 PT 10.6 Seconds (9.0-12.0) 01/24/20 12:20 INR 1.0 (0.9-1.1) 01/24/20 12:20 APTT 28.7 Seconds (21.0-31.0) 01/24/20 12:20 PTT Ratio 1.0 01/24/20 12:20 Sodium 142 mmol/L (136-145) 02/06/20 07:07 Potassium 4.1 mmol/L (3.5-5.1) 02/06/20 07:07 Chloride 110 mmol/L (98-107) H 02/06/20 07:07 Carbon Dioxide 26 mmol/L (21-32) 02/06/20 07:07 Anion Gap 6.0 (3-11) 02/06/20 07:07 BUN 23 mg/dl (7-18) H 02/06/20 07:07 Creatinine 0.98 mg/dl (0.6-1.2) 02/06/20 07:07 Est Cr Clr Drug Dosing 43.2 ml/min 02/06/20 07:07 Est GFR ( Amer) 64.0 02/06/20 07:07 Est GFR (Non-Af Amer) 55.3 02/06/20 07:07 BUN/Creatinine Ratio 23.1 (10-20) H 02/06/20 07:07 Glucose 115 mg/dl (70-99) H 02/06/20 07:07 Estimat Average Glucose 120 mg/dl 01/24/20 12:20 Hemoglobin A1c 5.8 % (4.5-5.6) H 01/24/20 12:20 Calcium 9.2 mg/dl (8.5-10.1) 02/06/20 07:07 Albumin 4.0 gm/dl (3.4-5.0) 01/24/20 12:20 Urine Color Yellow 01/24/20 12:20 Urine Appearance Clear (Clear) 01/24/20 12:20 Urine pH 6.5 (4.5-7.5) 01/24/20 12:20 Ur Specific [place] 1.006 (1.000-1.030) 01/24/20 12:20 Urine Protein Negative (Negative) 01/24/20 12:20 Urine Glucose (UA) Negative (Negative) 01/24/20 12:20 Urine Ketones Negative (Negative) 01/24/20 12:20 Urine Blood Negative (Negative) 01/24/20 12:20 Urine Nitrite Negative (Negative) 01/24/20 12:20 Urine Bilirubin Negative (Negative) 01/24/20 12:20 Urine Urobilinogen Negative (Negative) 01/24/20 12:20 Ur Leukocyte Esterase Negative (Negative) 01/24/20 12:20 Blood Type O Positive 01/24/20 12:20 Antibody Screen NEGATIVE 01/24/20 12:20
[2020-02-06] MEDS: ASCORBIC ACID 500 MG TAB PO SCH ×2 (09:04→21:21)
[2020-02-06] MEDS: MULTIVITAMIN TAB PO SCH (09:05)
[2020-02-06] MEDS: ASPIRIN 81 MG ECTAB PO SCH ×2 (09:05→21:20)
[2020-02-06] MEDS: lisinopril 40 MG TAB PO SCH (09:05)
[2020-02-06] MEDS: CALCIUM CARBONATE 1250MG TAB PO SCH ×2 (09:05→21:20)
[2020-02-06] MEDS: DOCUSATE SODIUM 100 MG CAP PO SCH ×2 (09:05→21:20)
[2020-02-06] MEDS: SENNA 8.6 MG TAB PO SCH (21:20)
[2020-02-06] MEDS: oxyCODONE HCL IR 5 MG TAB (IMMEDIATE RELEASE) PO PRN (21:25)
[2020-02-07] MEDS: ACETAMINOPHEN 500 MG TAB PO SCH ×2 (05:52→13:51)
[2020-02-07 07:13] VITALS: PULSE 68; TEMP 97.3; O2SAT 91
[2020-02-07] MEDS: DOCUSATE SODIUM 100 MG CAP PO SCH (07:29)
[2020-02-07] MEDS: CALCIUM CARBONATE 1250MG TAB PO SCH (07:29)
[2020-02-07] MEDS: ASCORBIC ACID 500 MG TAB PO SCH (07:29)
[2020-02-07] MEDS: ASPIRIN 81 MG ECTAB PO SCH (07:30)
[2020-02-07] MEDS: MULTIVITAMIN TAB PO SCH (07:30)
[2020-02-07] MEDS: lisinopril 40 MG TAB PO SCH (07:30)
--- NOTE | 2020-02-07 07:32 | Orthopedic Progress Note ---
Date of Service February 07, 2020 Assessment & Plan (1) History of total right knee replacement: POD #2 s/p Right TKA pt/ot dvt proph with LOC/SCD/ASA plan for d/c home with HHPT after PT today Admission and Anticipated Discharge Date Admission Date: February 05, 2020 Subjective POD #2 s/p Right TKA Review of Systems Review of Systems: All systems reviewed & are unremarkable except as noted in HPI & below Constitutional: no fever and no chills Respiratory: no cough and no dyspnea Cardiovascular: no chest pain, no dyspnea and no orthopnea Gastrointestinal: no abdominal pain, no nausea and no vomiting Physical Exam Physical Exam: Vital Signs Temp 36.3 C L 02/07/20 07:11 Pulse 68 02/07/20 07:11 Resp 16 02/07/20 07:11 BP 161/73 H 02/07/20 07:11 Pulse Ox 91 02/07/20 07:11 Intake & Output 02/06/20 02/07/20 02/07/20 18:59 06:59 18:59 Intake Total 625 / 1125 500 / 1125 Output Total 500 / 500 Balance 125 / 625 500 / 625 Intake: Oral 625 / 1125 500 / 1125 Output: Urine 400 / 400 Drain Output 100 / 100 Right Knee Hem ovac 100 / 100 Other: # Unmeasured Voi ds 1 Constitutional: WD/WN, vitals as above no acute distress Musculoskeletal: Right leg: NVDI, calf SNT, negative kaylen sign. DP palpable, able to wiggle toes/ankle movement without difficulty. KEVIN dressing clean dry and intact. expected post-operative bruising noted. Results & Data ([facility]) Vital Signs (Past 12 Hours) Vital Signs Temp Pulse Resp BP Pulse Ox 02/07/20 07:11 36.3 C L 68 16 161/73 H 91 02/06/20 23:13 36.6 C 72 15 150/90 H 94 Laboratory Results Laboratory Results WBC 14.88 K/uL (4.8-10.8) H 02/06/20 07:07 RBC 3.52 M/uL (4.2-5.4) L 02/06/20 07:07 Hgb 10.1 g/dL (12.0-16.0) L 02/06/20 07:07 Hct 31.4 % (37-47) L 02/06/20 07:07 MCV 89.2 fL (80-100) 02/06/20 07:07 MCH 28.7 pg (25-34) 02/06/20 07:07 MCHC 32.2 g/dL (32-36) 02/06/20 07:07 RDW Std Deviation 42.3 fL (36.4-46.3) 02/06/20 07:07 RDW Coeff of Raul 13.1 % (11.5-14.5) 02/06/20 07:07 Plt Count 270 K/uL (130-400) 02/06/20 07:07 MPV 10.6 fL (7.4-10.4) H 02/06/20 07:07 Immature Gran % (Auto) 0.2 % 01/24/20 12:20 Neut % (Auto) 64.5 % 01/24/20 12:20 Lymph % (Auto) 23.9 % 01/24/20 12:20 [place] % (Auto) 9.0 % 01/24/20 12:20 Eos % (Auto) 2.2 % 01/24/20 12:20 Baso % (Auto) 0.2 % 01/24/20 12:20 Neut # (Auto) 5.98 K/uL (1.4-6.5) 01/24/20 12:20 Lymph # (Auto) 2.21 K/uL (1.2-3.4) 01/24/20 12:20 [place] # (Auto) 0.83 K/uL (0.11-0.59) H 01/24/20 12:20 Eos # (Auto) 0.20 K/uL (0-0.5) 01/24/20 12:20 Baso # (Auto) 0.02 K/uL (0-0.2) 01/24/20 12:20 Immature Gran # (Auto) 0.02 K/uL (0.00-0.02) 01/24/20 12:20 PT 10.6 Seconds (9.0-12.0) 01/24/20 12:20 INR 1.0 (0.9-1.1) 01/24/20 12:20 APTT 28.7 Seconds (21.0-31.0) 01/24/20 12:20 PTT Ratio 1.0 01/24/20 12:20 Sodium 142 mmol/L (136-145) 02/06/20 07:07 Potassium 4.1 mmol/L (3.5-5.1) 02/06/20 07:07 Chloride 110 mmol/L (98-107) H 02/06/20 07:07 Carbon Dioxide 26 mmol/L (21-32) 02/06/20 07:07 Anion Gap 6.0 (3-11) 02/06/20 07:07 BUN 23 mg/dl (7-18) H 02/06/20 07:07 Creatinine 0.98 mg/dl (0.6-1.2) 02/06/20 07:07 Est Cr Clr Drug Dosing 43.2 ml/min 02/06/20 07:07 Est GFR ( Amer) 64.0 02/06/20 07:07 Est GFR (Non-Af Amer) 55.3 02/06/20 07:07 BUN/Creatinine Ratio 23.1 (10-20) H 02/06/20 07:07 Glucose 115 mg/dl (70-99) H 02/06/20 07:07 Estimat Average Glucose 120 mg/dl 01/24/20 12:20 Hemoglobin A1c 5.8 % (4.5-5.6) H 01/24/20 12:20 Calcium 9.2 mg/dl (8.5-10.1) 02/06/20 07:07 Albumin 4.0 gm/dl (3.4-5.0) 01/24/20 12:20 Urine Color Yellow 01/24/20 12:20 Urine Appearance Clear (Clear) 01/24/20 12:20 Urine pH 6.5 (4.5-7.5) 01/24/20 12:20 Ur Specific [place] 1.006 (1.000-1.030) 01/24/20 12:20 Urine Protein Negative (Negative) 01/24/20 12:20 Urine Glucose (UA) Negative (Negative) 01/24/20 12:20 Urine Ketones Negative (Negative) 01/24/20 12:20 Urine Blood Negative (Negative) 01/24/20 12:20 Urine Nitrite Negative (Negative) 01/24/20 12:20 Urine Bilirubin Negative (Negative) 01/24/20 12:20 Urine Urobilinogen Negative (Negative) 01/24/20 12:20 Ur Leukocyte Esterase Negative (Negative) 01/24/20 12:20 Blood Type O Positive 01/24/20 12:20 Antibody Screen NEGATIVE 01/24/20 12:20
[2020-02-07] MEDS: oxyCODONE HCL IR 5 MG TAB (IMMEDIATE RELEASE) PO PRN (07:34)
[2020-02-07 10:54] VITALS: BP 131/75
[2020-02-07] MEDS ORDERED: traMADol HCL 50 MG TABLET PO PRN (11:36)
--- NOTE | 2020-02-07 15:34 | Discharge Summary ---
Date of Service date of discharge: February 07, 2020 date of admission: 02-05-20 Admission HPI Per Admitting Provider Roopa is a 79 year old female who complains of Right knee pain, presents for pre-op evaluation prior to a Right total knee replacement by dr Daniels at [facility]. She complains of pain, crepitus, decreased range of motion, instability and stiffness in her right knee. she states that the symptoms have been chronic and non-traumatic. Currently the patient states that the symptoms are moderate- severe. The pain is described as aching, sharp and throbbing. The symptoms are aggravated by ascending stairs, daily activities, first steps while awake walking. She is unable to NSAIDs, Aleve causes heart palpitations. She has been treated with previous visco and cortisone injections in the past without much relief. Principal Diagnosis Right knee arthritis Discharge Exam Vital Signs Temp 36.3 C L 02/07/20 10:53 Pulse 68 02/07/20 10:53 Resp 16 02/07/20 10:53 BP 131/75 02/07/20 10:53 Pulse Ox 91 02/07/20 10:53 Intake & Output 02/06/20 02/07/20 02/07/20 18:59 06:59 18:59 Intake Total 625 / 1125 500 / 1125 Output Total 500 / 500 Balance 125 / 625 500 / 625 Weight 76.317 kg Intake: Oral 625 / 1125 500 / 1125 Output: Urine 400 / 400 Drain Output 100 / 100 Right Knee Hemovac 100 / 100 Other: # Unmeasured Voids 1 Constitutional WD/WN, vitals as above no acute distress Musculoskeletal Right Knee: NVDI, calf SNT, negative kaylen sign. DP palpable, able to wiggle toes/ankle movement without difficulty. KEVIN dressing clean dry and intact. expected post-operative bruising noted. Discharge Data Allergies Allergy/AdvReac Type Severity Reaction Status Date / Time Penicillins Allergy Mild hives, Verified 02/05/20 05:33 dyspnea allopurinol Allergy Unknown diffuse Verified 02/05/20 05:33 body rash, flushing amoxicillin Allergy Unknown hives Verified 02/05/20 05:33 febuxostat Allergy Unknown eyes Verified 02/05/20 05:33 swelled shut Sulfa (Sulfonamide Allergy Unknown unknown Verified 02/05/20 05:33 Antibiotics) reaction lactose AdvReac Intermediate GI upset Verified 02/05/20 05:33 nickel AdvReac Mild skin Verified 02/05/20 05:33 redness naproxen AdvReac Unknown palpitation Verified 02/05/20 05:33 s Consultations 02/05/20 09:57 Consult Case Management - Discharge Planning Routine Procedures Performed Operation Date: 02/05/20 07:00 Actual Procedures p Right Total Knee Arthroplasty, Cemented(Right) - El Daniels DO Ordered Studies 02/05/20 05:00 US - OR guided needle placemen Routine Hospital Course (1) History of total right knee replacement: POD #2 s/p Right TKA pt/ot dvt proph with LOC/SCD/ASA plan for d/c home with HHPT after PT today Total Time Total Time Spent Total Time Spent (In Minutes): 20 Total Time Includes: Examination of the Patient, Discharge Planning and Medicat ion Reconciliation Discharge Plan Discharge Items Patient Disposition: Home - Home Health Services Reason For Visit: Unilateral Primary Osteoarthritis, Right Knee Discharge Diagnosis: Right total knee replacement Condition on Discharge: Good Activity: Per Instructions section Lifting: Wait until after follow-up appointment Weightbearing: Right weightbearing Weightbearing Comment: as tolerated with walker Non-emergency contact: Surgeon Call non-emergency contact if: your temperature is above 101, your wound has increased redness, your wound has increased drainage and your wound pain has increased Follow-up/Referrals: Madeline Suresh MD [Primary Care Provider] - Diet: Regular Addtl Attending Provider Instructions: ACTIVITY RECOMMENDATIONS: SELF CARE INSTRUCTIONS AFTER TOTAL KNEE REPLACEMENT A. You may need to continue a physical therapy program after discharge from the hospital. There are several options available to you. Your doctor will assist you in selecting the best one for you. 1. An out-patient facility 2 to 3 times a week for therapy or home therapy. 2. Continue working on all exercises taught to you in the hospital. Your goals should be to increase bending of your knee to 90 degrees and beyond and to fully straighten your knee. B. You may progress at your own pace from walking with a walker or crutches to a cane; then to no assistive devices. C. Make walking a part of your daily routine. Be up as much as comfortable with rest periods throughout the day. Rest with leg elevation is very important. Use the ice wrap frequently for the first 3-4 weeks. D. There are no restrictions on activities. You may ride in a car, shop, participate in associate professor of archaeology and all social activities. E. Wear the long elastic stockings (LOC hose) 20 hours a day for 2 weeks after surgery. They can be removed several times a day for laundering and for a bath. F. You may shower, no tub baths until cleared by your doctor. SPECIAL CARE INSTRUCTIONS: VERY IMPORTANT TO READ AND REVIEW A. There are a few signs you need to watch for after you are home. Call [facility] if you notice any of the followin. Increased severe knee pain. Some pain is expected especially when you exercise. 2. Increased swelling in your leg or knee; pain or swelling of the calf muscle in either lower leg. 3. Any fluid drainage from the incision. 4. Shortness of breath or chest pain. B. Please call [facility] at if you have any concerns or questions about your operation or recovery. The doctor or his nurse will return your call promptly. C. You must take antibiotics before dental work, bladder, bowel or other surgery. Your doctor will provide you with a permanent care to carry describing this precaution. IMPORTANT: * REMEMBER TO TAKE ASPIRIN, 81 MG, TWICE DAILY FOR 4 WEEKS UNLESS OTHERWISE DIRECTED. THIS IS YOUR BLOOD THINNER. * HIGH RISK PATIENTS MAY BE PRESCRIBED A STRONGER BLOOD THINNER. THIS WILL BE PROVIDED AT DISCHARGE. * CALL IF INCREASED PAIN, REDNESS, DRAINAGE OR FEVER GREATER THAT 101. * WEAR LOC HOSE 20 HOURS PER DAY FOR 2 WEEKS. * KEVIN Dressing- This is a large suction dressing covering your incision. This will help pull any excess drainage from the wound and allow your incision to heal properly. You may shower with this if you can keep the unit outside of the shower. If any bleeding or leakage is noted please call your doctor's office. This will remain on your incision for 7 days and then should be removed. This can be done yourself or by the home nursing staff if applicable. The entire unit is disposable once removed. Once removed, keep incision clean and dry. If redness or drainage is noted, please call your surgeon. Once KEVIN is removed, follow these instructions: DERMABOND Prineo- This is a mesh tape dressing that is covered with glue. It should remain in place until the incision is properly healed, usually 10-14 days. This dressing is designed to naturally slough off. You may trim the excess mesh tape as it peels off. Incision may be briefly wet in a shower. Dry immediately by blotting with a clean, dry towel. Do not bath or swim until instructed by your doctor. Do not scratch, rub, or pick at the dressing. Do not apply any topical ointments or lotions until dressing is completely removed and/or instructed by your doctor. There may be a small piece of suture material at one end of your incision. Do not pull or trim this. If it is bothersome or catching on clothing, you may cover it with a band-aid. IF INCISION IS LEAKING THROUGH DRESSING, CALL THE OFFICE . FOLLOW UP VISIT: If appointment is not already scheduled: Please call [facility] [place] to make a follow-up appointment for 2 weeks after your surgery at . Pending Studies at Discharge: No Stand-Alone Forms: My [facility], Opioid Pain Management Medications and DC Order Prescriptions: New aspirin 81 mg Tablet,Delayed Release (Dr/Ec) 81 mg PO BID 30 Days Qty: 60 RF: 0 acetaminophen 500 mg Tablet 1,000 mg PO Q8 14 Days Qty: 84 RF: 0 doxycycline hyclate 100 mg capsule 100 mg PO BID 14 Days Qty: 28 RF: 1 polyethylene glycol 3350 [Miralax] 17 gram powder in packet 17 g PO DAILY PRN (Reason: constipation) Qty: 5 RF: 0 oxycodone 5 mg Tablet 5 mg PO Q4H PRN (Reason: pain) Qty: 30 RF: 0 clindamycin HCl 300 mg capsule 300 mg PO TID 7 Days Qty: 21 RF: 0 Continued ascorbic acid (vitamin C) [Vitamin C] 250 mg Tablet 250 mg PO BID RF: 0 calcium carbonate [Calcium 500] 500 mg calcium (1,250 mg) Tablet,Chewable 500 mg PO BID RF: 0 lisinopril 40 mg Tablet 40 mg PO QAM RF: 0 apple cider vinegar 500 mg Tablet 500 mg PO BID RF: 0 multivitamin Tablet,Chewable 1 tab PO BID RF: 0 omeprazole 20 mg Tablet,Disintegrat, Delay Rel 20 mg PO QAM RF: 0 turmeric 400 mg Capsule 400 mg PO QAM RF: 0 Discontinued aspirin [Aspir-81] 81 mg Tablet,Delayed Release (Dr/Ec) 81 mg PO QAM RF: 0 Fish Oil 900-1,400 mg Capsule,Delayed Release(Dr/Ec) 1 cap PO BID RF: 0 Discharge Orders: Discharge Order (Routine); Ordered 02/07/20 Ordered By: Rene Zavala/Other Patient Handouts: Preventing Deep Vein Thrombosis Admission Data Admit Date/Time: 02/05/20 09:15 Attending Provider: El Daniels Admit Provider: El Daniels Primary Care Provider: Madeline Suresh Other Providers: [facility],Home Healthcare Other Interventions: Discharge Summary Assessment (RN) Last Done: 02/07/20 10:53
== END 2020-02-07 16:17 | disposition home health service (06) | DRG 470 ==
LOC: 3E 05:07 → ASU 05:07 → OBSVTOIN 09:15

== ENCOUNTER 2020-02-12 17:22 | Inpatient (IN) ==
[2020-02-12] MEDS ORDERED: ONDANSETRON INJ 2 MG/ML 2 ML VIAL ONE (17:28)
[2020-02-12] MEDS ORDERED: methylPREDNISolone 125 MG/2 ML VIAL IV STA (17:32)
[2020-02-12] MEDS ORDERED: METOCLOPRAMIDE HCL INJ 5 MG/ML 2 ML VIAL IV ONE (17:32)
[2020-02-12] MEDS ORDERED: diphenhydrAMINE 50 MG/ML VIAL IV STA (17:41)
[2020-02-12] MEDS ORDERED: SODIUM CHLORIDE 0.9% 500 ML IV SCH (17:45)
[2020-02-12] MEDS ORDERED: SODIUM CHLORIDE 0.9% 1000ML 1,000 ML IV SCH (17:45)
--- NOTE | 2020-02-12 18:09 | XRay Report ---
XR chest 1V portable CLINICAL HISTORY: weakness COMPARISON STUDY: 01/24/2020 FINDINGS: The heart is the upper limits of normal in size. There is subtle elevation of the interstit ium. Subtle right perihilar airspace opacities cannot be excluded. There is no lobar consolidation.[ IMPRESSION: 1. Subtle nonspecific elevation of interstitium 2. Equivocal right perihilar airspace opacities. ACT 112: Negative or not required by law. Electronically signed by: Tenzin Esparza M.D. 02/12/2020 6:07 PM
[2020-02-12] MEDS ORDERED: CEFEPIME 2,000 MG/20 ML VIAL IV STA (18:11)
[2020-02-12] MEDS ORDERED: VANCOMYCIN HCL 1,500 MG in SODIUM CHLORIDE 0.9% 500 ML IV ONE (18:11)
[2020-02-12] MEDS ORDERED: VANCOMYCIN CONSULT ACTIVE PRN ×2 (18:11→22:14)
[2020-02-12] MEDS ORDERED: SODIUM CHLORIDE 0.9% 1000ML 500 ML IV ONE (18:12)
[2020-02-12 18:20] LABS: Appearance Urine Cloudy (Clear); Bacteria Urine Automated Negative (Negative); Bilirubin Urine Negative (Negative); Blood Urine Negative (Negative); Color Urine Yellow; Epithelial Cell Urine Auto >30 /lpf (0-5); Glucose Urine UA Negative (Negative); Ketones Urine Negative (Negative); Leukocyte Esterase Urine Negative (Negative); Nitrite Urine Negative (Negative); Protein Urine 1+ (Negative); RBC Urine Automated 0-4 /hpf (0-4); Specific Gravity Urine 1.016 (1.000-1.030); Urobilinogen Urine Negative (Negative)
[2020-02-12 18:30] LABS: Hematocrit (blood only) 39.9 % (37-47); Hemoglobin 12.9 g/dL (12.0-16.0); Mean Corpuscular Hemoglobin 29.1 pg (25-34); Mean Corpuscular Hgb Conc 32.3 g/dL (32-36); Mean Corpuscular Volume 90.1 fL (80-100); Mean Platelet Volume 10.4 fL (7.4-10.4); Platelet Count 496 K/uL (130-400); RDW Coefficient of Variation 13.4 % (11.5-14.5); RDW Standard Deviation 44.6 fL (36.4-46.3); Red Blood Count 4.43 M/uL (4.2-5.4); White Blood Count 20.49 K/uL (4.8-10.8)
[2020-02-12 18:39] LABS: iSTAT Creatinine 1.1 mg/dl (0.6-1.3); iSTAT Hemoglobin 13.3 g/dl (12.0-16.0); iSTAT Ionized Calcium 1.2 mmol/l (1.12-1.32); iSTAT Potassium 4.2 mmol/L (3.3-5.0)
[2020-02-12 18:47] LABS: Albumin Level 2.6 gm/dl (3.4-5.0); BUN Creatinine Ratio 15.6 (10-20); Calcium 8.8 mg/dl (8.5-10.1); Creatinine Clr Calc Pharmacy 31.2 ml/min; Est GFR (African American) 44.3; Est GFR (Non-African American) 38.2; Magnesium 2.7 mg/dl (1.8-2.4); Potassium 4.2 mmol/L (3.5-5.1)
[2020-02-12 18:49] LABS: Basophils # (auto) 0.03 K/uL (0-0.2); Basophils % (auto) 0.1 %; Eosinophils # (auto) 0.25 K/uL (0-0.5); Eosinophils % (auto) 1.2 %; Immature Granulocytes # (auto) 0.14 K/uL (0.00-0.02); Immature Granulocytes % (auto) 0.7 %; Lymphocytes # (auto) 2.56 K/uL (1.2-3.4); Lymphocytes % (auto) 12.5 %; Monocytes # (auto) 0.42 K/uL (0.11-0.59); Neutrophils # (auto) 17.09 K/uL (1.4-6.5); Neutrophils % (auto) 83.5 %
[2020-02-12 19:00] LABS: Albumin Globulin Ratio 0.7 (0.9-2); Bilirubin,Total 1.8 mg/dl (0.2-1); Globulin 3.7 gm/dl (2.5-4.0); Thyroid Stimulating Hormone 0.79 uIu/ml (0.300-4.500); Total Protein 6.3 gm/dl (6.4-8.2); Troponin I 0.048 ng/ml (0-0.045)
[2020-02-12] MEDS ORDERED: SODIUM CHLORIDE 0.9% 1000ML 1,000 ML IV ONE (19:04)
[2020-02-12] MEDS ORDERED: OPTIRAY 320 125ml IV ONE (19:28)
--- NOTE | 2020-02-12 19:43 | CT Scan Report ---
CT ANGIOGRAM OF THE CHEST CLINICAL HISTORY: hypotension, hypoxia, recent knee surgery POSSIBLE PULMONARY EMBOLISM COMPARISON STUDY: Chest x-ray dated 02/12/2020 TECHNIQUE: Following the IV administration of 120 mL of Optiray-320, CT angiogram of the thorax was p erformed from the thoracic inlet to the lung bases utilizing the pulmonary embolus protocol. Images a re reviewed in the axial, sagittal, and coronal planes. IV contrast was administered without complica tion. MIP imaging was performed. A dose lowering technique was utilized adhering to the principles o f ALARA. CT DOSE: FINDINGS: There is a multinodular thyroid gland containing multiple calcifications. Nodules measure up to 17 mm in diameter. There is a mildly distended fluid-filled esophagus. No pathologically enlarged axillary mediastinal or hilar lymph nodes were visualized. There was no evidence of thoracic aortic dilatation. There were no pulmonary artery filling defects to indicate acute pulmonary embolism. No pleural effusions are visualized. There are bibasilar opacities, statistically atelectatic. There is no lobar consolidation. There are a few tree-in-bud opacities within the base the right upper lobe, likely inflammatory/postinflammator y. There is a very subtle increased groundglass attenuation the lungs possibly secondary to a subopti mal inspiration. IMPRESSION: 1. No evidence of acute pulmonary embolism 2. Mildly distended fluid-filled esophagus 3. Basilar opacities likely atelectatic 4. Minimal tree-in-bud opacities within the base of the right upper lobe, likely inflammatory/postinf lammatory 5. Subtle diffuse increased groundglass attenuation the lungs, possibly secondary to a suboptimal ins piration. ACT 112: Negative or not required by law. Electronically signed by: Tenzin Esparza M.D. 02/12/2020 7:42 PM
--- NOTE | 2020-02-12 19:49 | CT Scan Report ---
CT abd pelvis IV con only CLINICAL HISTORY: Dominant pain, vomiting, hypotension. COMPARISON STUDY: None. TECHNIQUE: Patient was scanned in a dynamic helical fashion during intravenous administration of 1 20 cc of Optiray 320 A dose lowering technique was utilized adhering to the principles of ALARA. CT DOSE: 1310.52 mGy.cm FINDINGS: Lower chest: There are bibasilar opacity statistically atelectatic. There is a fluid-filled mildly di stended esophagus. Liver: The contrast-enhanced liver is normal in size, contour, and attenuation. There is no intrahepa tic biliary ductal dilatation. The hepatic veins and portal veins are patent. Gallbladder: Surgically absent. There is mild dilatation the common bile duct which measures 1 cm. Th is may be secondary to a reservoir effect. Spleen: Normal in size and attenuation. Pancreas: Unremarkable. Adrenal glands: Unremarkable. Kidneys: There are multiple bilateral renal cysts. There is no hydronephrosis. Bowel: There is gastric antral wall thickening. While this can be seen as a normal variant, is rather pronounced the current study. Clinical correlation regards to gastritis is recommended. There are mu ltiple fluid-filled small bowel loops. There is no discrete transition zone to indicate a bowel obstr uction. The colon is mildly distended with stool and fluid. There is mild infiltration of pericolonic fat at the level of the descending colon. There is no evidence of acute diverticulitis. There is col onic diverticulosis. There is no convincing evidence of acute diverticulitis. Peritoneum: There is trace free pelvic fluid. Vasculature: The abdominal aorta is normal in course and caliber. Adenopathy: None. Pelvic viscera: The uterus appears surgically absent Skeletal structures: No destructive osseous lesions are seen. IMPRESSION: 1. Fluid-filled small bowel loops without evidence for discrete transition zone. An ileus is favored over a bowel obstruction 2. Mild colonic distention with subtle infiltration of the fat surrounding the colon extending from t he splenic flexure to the sigmoid. This may indicate a subtle colitis. 3. Gastric antral wall thickening. Correlate clinically for evidence of a gastritis 4. Mildly distended fluid-filled esophagus ACT 112: Negative or not required by law. Electronically signed by: Tenzin Esparza M.D. 02/12/2020 7:48 PM
[2020-02-12] MEDS ORDERED: SOD PHOSPHATE/SOD BIPHOSPHATE ENEMA 132 ML BTL PR STA (20:16)
--- NOTE | 2020-02-12 20:44 | Emergency Department Note ---
Impression & Plan Sepsis, Acute hypotension, Leukocytosis, Pneumonia, Ileus ED Provider Note INFORMANT: Patient ED PROVIDER(S): Mart Scherer MD CHIEF COMPLAINT: Altered mental status PLAN: Disposition: Admitted Condition: Guarded MEDICAL DECISION MAKING: Patient presented and was acutely ill with abnormal vital signs. She received fluid resuscitation and boluses. Her blood pressure gradually improved. Her ECG did not reveal any acute findings except for significant tachycardia. Her CBC showed a marked leukocytosis. Lactate was elevated. Repeat lactate ordered. Multiple fluid boluses also ordered. The patient was given broad- spectrum antibiotic coverage. Initially Zofran was ordered given some additional nausea but when she complained that her tongue was feeling swollen without any obvious hives or rashes I refrain from additional doses and switch to Reglan and Benadryl. She seemed to do well with this. CT imaging was performed as noted below. The patient does have a pneumonia. Urinalysis was unremarkable. Her troponin was mildly elevated which I suspect is a stress response secondary to the hypotension and tachycardia. She does not complain of any chest pain. The patient does have significant constipation which I suspect is from her surgery and pain medication use. Once her blood pressure improved she did request an enema. This was ordered. Repeat lactate was elevated as well. Consultation was made with internal medicine for further management in the hospital. Triage Nursing notes reviewed and agree them. Additional history obtained from patient's daughter. Vital Signs: reviewed and remarkable for hypotension and tachycardia Differential diagnosis: Sepsis, PE, bowel obstruction, infection, hypoglycemia, electrolyte abnorma lities, overdose, toxicologic, cardiac sources, intracerebral event, neurologic, trauma, as well as other pathologies. Diagnostics interpreted by me: ECG: Twelve-lead ECG reveals sinus tachycardia at 126 bpm. There is an incomplete right bundle branch block. Nonspecific T wave abnormality and ST segment abnormality present. There is no ST elevation. No PVCs or PACs. Normal axis. Cardiac Monitoring: Cardiac monitoring ordered by me: The patient was placed on continuous cardiac monitoring and observed. It revealed a sinus tachycardia at 115 beats per minute without ectopy or evidence of dysrhythmia. Imaging studies: Chest x-ray concerning for pneumonia. CT imaging of the chest did not reveal any evidence of pulmonary embolism. There is pneumonia developing. CT imaging of the abdomen pelvis reveal significant ileus and distention of the bowel and stomach. No focal point to suggest obstruction. Mild colitis and gastritis possible. I refer you to the EMR for further details. [facility] Dr[facility] Aramis Wheatley. HPI: The patient is a 79 year old female who presents to the Emergency Room with complaints of altered mental status. This started this evening after nearly passing out on the toilet. The patient has had abdominal pain, chills and notes constipation. EMS attended to the patient and she was found to have a low blood pressure and tachycardia. She also seemed out of it and had pinpoint pupils. She is taking oxycodone after having knee surgery. The patient was given Narcan as well as Zofran. She had nausea and vomiting. EMS noted that seem to help somewhat with her level of consciousness but her blood pressure was still low.. The patient also notes the following associated symptoms, feeling like her tongue is mildly swollen since receiving her Narcan and Zofran. Family noted that the patient was up and moving around on her knee. They also noted that she was having difficulty with constipation. Pt denies LOC, headache, fevers, diaphoresis, visual changes, neck pain, chest pain, breathing difficulties, back pain, melena, hematochezia, urinary symptoms, numbness, focal weakness, lymphadenopathy, rash, or other complaints. ROS: See above HPI for pertinent positives & negatives. A total of 10 systems reviewed and were otherwise negative. PAST MEDICAL HISTORY:See Below, arthritis PAST SURGICAL HISTORY:See Below, knee replacement FAMILY HISTORY:See Below SOCIAL HISTORY:See Below, lives with family HOME MEDICATIONS:See Below ALLERGIES:See Below VITALS:See Below PHYSICAL EXAMINATION: GENERAL: Awake, mildly toxic-appearing, in mild distress HENT: Normocephalic, atraumatic. Oropharynx unremarkable. EYES: Normal conjunctiva. Sclera non-icteric. NECK: Inspection normal. Non-tender. Supple. No nuchal rigidity. FROM. No masses. RESPIRATORY: Clear to auscultation. No wheezes. No rales. Normal respiratory effort. CARDIAC: Tachycardic rate. Normal rhythm. No murmurs. No rubs. Extremities warm and well perfused. Pulses equal. No JVD. GI: Soft, mild-distended. Generalized tenderness to palpation. No rebound or guarding. No masses. RECTAL: Deferred. MUSCULOSKELETAL: Atraumatic. Chest examination reveals no tenderness. The back is symmetrical on inspection without obvious abnormality. There is bilateral CVA tenderness to palpation. No joint edema. LOWER EXTREMITIES: Calves are equal size bilaterally and non-tender. No edema. No discoloration. NEURO: Very tired but answering questions appropriately, otherwise normal sensorium. No sensory or motor deficits noted. SKIN: No rash or jaundice noted. ED COURSE: Critical Care: I have personally spent greater than 40 minutes of critical care time in the direct management of this patient. This includes bedside care, interpretation of diagnostic studies, and testing, discussion with consultants, patient, and family members, and other required patient management activities. These minutes are in excess of all separately billable procedures. Mart Scherer MD Past Med/Surg History Medical History DVT (deep venous thrombosis) RLE (15+ years ago) after long travel Fatty liver Gout Hiatal hernia sliding Hypertension Hypothyroidism euthyroid off meds, under surveillance Kidney cysts under surveillance Myocardial Infarction possible [place] 10+ years ago, medically managed Neuropathy of both feet Osteoarthritis Osteoporosis Spinal stenosis Torn rotator cuff right Surgical History History of bilateral tubal ligation History of bladder surgery sling History of hysterectomy History of myringotomy right History of surgery on left wrist History of tonsillectomy History of tooth extraction Hx of cervical spine surgery discectomy x3 levels + CAGE (2011) Hx of elbow surgery LEFT Social History Smoking Status: Never smoker Second Hand Exposure: No; Hx Alcohol Use: Yes Alcohol type: wine Hx Substance Use: No Preferred Language: Cypriot Communication Ability: Effective Pediatric Clinical Dietician Required: No Beliefs That Will Affect Care: None marital status: / Current Living Situation: Alone Feels Safe at Home: Yes Assistive Devices: Walker Allergies Allergies Allergy/AdvReac Type Severity Reaction Status Date / Time Penicillins Allergy Mild hives, Verified 02/12/20 20:42 dyspnea allopurinol Allergy Unknown diffuse Verified 02/12/20 20:42 body rash, flushing amoxicillin Allergy Unknown hives Verified 02/12/20 20:42 febuxostat Allergy Unknown eyes Verified 02/12/20 20:42 swelled shut Sulfa (Sulfonamide Allergy Unknown unknown Verified 02/12/20 20:42 Antibiotics) reaction lactose AdvReac Intermediate GI upset Verified 02/12/20 20:42 nickel AdvReac Mild skin Verified 02/12/20 20:42 redness naproxen AdvReac Unknown palpitation Verified 02/12/20 20:42 s Home Meds Home Medications Medication Instructions Recorded Confirmed apple cider vinegar 500 mg PO BID 01/15/20 02/12/20 ascorbic acid (vitamin C) [Vitamin 250 mg PO BID 01/15/20 02/12/20 C] calcium carbonate [Calcium 500] 500 mg PO BID 01/15/20 02/12/20 lisinopril 40 mg PO QAM 01/15/20 02/12/20 multivitamin 1 tab PO BID 01/15/20 02/12/20 omeprazole 20 mg PO QAM 01/15/20 02/12/20 turmeric 400 mg PO QAM 01/15/20 02/12/20 Previous Rx's Medication Instructions Recorded acetaminophen 1,000 mg PO Q8 14 Days #84 tab 02/06/20 aspirin 81 mg PO BID 30 Days #60 tab 02/06/20 doxycycline hyclate 100 mg PO BID 14 Days #28 cap 02/06/20 polyethylene glycol 3350 [Miralax] 17 g PO DAILY PRN #5 ea 02/06/20 clindamycin HCl 300 mg PO TID 7 Days #21 cap 02/07/20 Results & Data (ED) Vital Signs Vital Signs - 24 hr 02/12/20 17:29 02/12/20 17:32 02/12/20 17:46 Temperature 36.5 C Temperature Source Oral Pulse Rate 130 H 125 H 127 H Pulse Rate from SpO2 Sensor Respiratory Rate 20 28 H 32 H Blood Pressure 75/47 L 75/47 L 76/48 L Blood Pressure [Right Arm] Blood Pressure Mean 52 56 51 Blood Pressure Mean [Right Arm] Pulse Oximetry 88 L Oxygen Delivery Method Room Air Oxygen Flow Rate Sepsis Recent Fever Within 48 Hours No Sepsis New/Unexplained Change in Mental Status No Sepsis Action Taken by Nursing Physician Notified Oxygen Flow Rate - Titration Pulse Oximetry Post Tiitration 02/12/20 17:55 02/12/20 17:57 02/12/20 18:00 Temperature Temperature Source Pulse Rate 142 H 144 H Pulse Rate from SpO2 Sensor Respiratory Rate 33 H 36 H Blood Pressure 82/61 L 93/75 L Blood Pressure [Right Arm] Blood Pressure Mean 66 84 Blood Pressure Mean [Right Arm] Pulse Oximetry 93 Oxygen Delivery Method Nasal Cannula Oxygen Flow Rate 3 Sepsis Recent Fever Within 48 Hours Sepsis New/Unexplained Change in Mental Status Sepsis Action Taken by Nursing Oxygen Flow Rate - Titration 3 Pulse Oximetry Post Tiitration 93 02/12/20 18:40 02/12/20 19:00 02/12/20 19:48 Temperature Temperature Source Pulse Rate 126 H 126 H Pulse Rate from SpO2 Sensor 126 H 126 H Respiratory Rate 30 H 31 H Blood Pressure 87/60 L 101/65 131/62 Blood Pressure [Right Arm] Blood Pressure Mean 70 75 97 Blood Pressure Mean [Right Arm] Pulse Oximetry 94 93 Oxygen Delivery Method Oxygen Flow Rate Sepsis Recent Fever Within 48 Hours Sepsis New/Unexplained Change in Mental Status Sepsis Action Taken by Nursing Oxygen Flow Rate - Titration Pulse Oximetry Post Tiitration 02/12/20 20:05 02/12/20 20:27 02/12/20 20:37 Temperature Temperature Source Pulse Rate 115 H Pulse Rate from SpO2 Sensor 114 H Respiratory Rate 28 H Blood Pressure 63/48 L Blood Pressure [Right Arm] 131/62 Blood Pressure Mean 58 Blood Pressure Mean [Right Arm] 85 Pulse Oximetry 85 L Oxygen Delivery Method Oxygen Flow Rate Sepsis Recent Fever Within 48 Hours Sepsis New/Unexplained Change in Mental Status Sepsis Action Taken by Nursing Oxygen Flow Rate - Titration Pulse Oximetry Post Tiitration 02/12/20 20:39 02/12/20 21:00 02/12/20 21:01 Temperature Temperature Source Pulse Rate 110 H 110 H 113 H Pulse Rate from SpO2 Sensor 110 H 111 H 113 H Respiratory Rate 18 25 H 25 H Blood Pressure 114/48 L 115/72 Blood Pressure [Right Arm] Blood Pressure Mean 73 76 Blood Pressure Mean [Right Arm] Pulse Oximetry 95 95 95 Oxygen Delivery Method Oxygen Flow Rate Sepsis Recent Fever Within 48 Hours Sepsis New/Unexplained Change in Mental Status Sepsis Action Taken by Nursing Oxygen Flow Rate - Titration Pulse Oximetry Post Tiitration 02/12/20 21:30 02/12/20 21:31 02/12/20 21:55 Temperature Temperature Source Pulse Rate 110 H 113 H 112 H Pulse Rate from SpO2 Sensor 108 H 113 H Respiratory Rate 21 16 27 H Blood Pressure 98/69 L 93/67 L Blood Pressure [Right Arm] Blood Pressure Mean 81 75 Blood Pressure Mean [Right Arm] Pulse Oximetry 95 96 Oxygen Delivery Method Oxygen Flow Rate Sepsis Recent Fever Within 48 Hours Sepsis New/Unexplained Change in Mental Status Sepsis Action Taken by Nursing Oxygen Flow Rate - Titration Pulse Oximetry Post Tiitration Laboratory Data Result diagrams: 02/12/20 18:22 02/12/20 18:22 Lab Results 02/12/20 02/12/20 02/12/20 Range/Units 18:10 18:22 18:22 WBC 20.49 H (4.8-10.8) K/uL RBC 4.43 (4.2-5.4) M/uL Hgb 12.9 (12.0-16.0) g/dL POC Hgb (12.0-16.0) g/dl Hct 39.9 (37-47) % POC Hct (37-47) % MCV 90.1 (80-100) fL MCH 29.1 (25-34) pg MCHC 32.3 (32-36) g/dL RDW Std Deviation 44.6 (36.4-46.3) fL RDW Coeff of Raul 13.4 (11.5-14.5) % Plt Count 496 H (130-400) K/uL MPV 10.4 (7.4-10.4) fL Immature Gran % (Auto) 0.7 % Neut % (Auto) 83.5 % Lymph % (Auto) 12.5 % Meagher % (Auto) 2.0 % Eos % (Auto) 1.2 % Baso % (Auto) 0.1 % Neut # (Auto) 17.09 H (1.4-6.5) K/uL Lymph # (Auto) 2.56 (1.2-3.4) K/uL Meagher # (Auto) 0.42 (0.11-0.59) K/uL Eos # (Auto) 0.25 (0-0.5) K/uL Baso # (Auto) 0.03 (0-0.2) K/uL Immature Gran # (Auto) 0.14 H (0.00-0.02) K/uL POC Sodium (135-144) mmol/L Sodium 138 (136-145) mmol/L POC Potassium (3.3-5.0) mmol/L Potassium 4.2 (3.5-5.1) mmol/L POC Chloride (101-112) mmol/L Chloride 107 (98-107) mmol/L Carbon Dioxide 18 L (21-32) mmol/L POC Total CO2 (24-31) mmol/L Anion Gap 12.0 H (3-11) POC Anion Gap (16-25) mmol/L POC BUN (7-18) mg/dl BUN 21 H (7-18) mg/dl Creatinine 1.33 H (0.6-1.2) mg/dl POC Creatinine (0.6-1.3) mg/dl Est Cr Clr Drug Dosing 31.2 ml/min Est GFR ( Amer) 44.3 Est GFR (Non-Af Amer) 38.2 BUN/Creatinine Ratio 15.6 (10-20) Glucose 182 H (70-99) mg/dl POC Glucose (other) (70-99) mg/dl Lactate (0.4-2.0) mmol/L Calcium 8.8 (8.5-10.1) mg/dl POC Ioniz Calcium Jennifer (1.12-1.32) mmol/l Magnesium 2.7 H (1.8-2.4) mg/dl Total Bilirubin 1.8 H (0.2-1) mg/dl AST 48 H (15-37) U/L ALT 45 (12-78) U/L Alkaline Phosphatase 289 H (45-117) U/L Troponin I 0.048 H* (0-0.045) ng/ml Total Protein 6.3 L (6.4-8.2) gm/dl Albumin 2.6 L (3.4-5.0) gm/dl Globulin 3.7 (2.5-4.0) gm/dl Albumin/Globulin Ratio 0.7 L (0.9-2) TSH 0.790 (0.300-4.500) uIu/ml Urine Color Yellow Urine Appearance Cloudy A (Clear) Urine pH 5.0 (4.5-7.5) Ur Specific [place] 1.016 (1.000-1.030) Urine Protein 1+ H (Negative) Urine Glucose (UA) Negative (Negative) Urine Ketones Negative (Negative) Urine Blood Negative (Negative) Urine Nitrite Negative (Negative) Urine Bilirubin Negative (Negative) Urine Urobilinogen Negative (Negative) Ur Leukocyte Esterase Negative (Negative) Urine WBC (Auto) 1-5 (0-5) /hpf Urine RBC (Auto) 0-4 (0-4) /hpf U Hyaline Cast (Auto) 1-5 (0-5) /lpf U Epithel Cells (Auto) >30 H (0-5) /lpf Urine Bacteria (Auto) Negative (Negative) Nasal Screen MRSA (PCR) (Negative) Stl C. diff Tox B Gene (Neg) COVID-19 Eval Order SARS-CoV-2, RNA, NAAT (NEGATIVE) 02/12/20 02/12/20 02/12/20 Range/Units 18:22 18:26 20:00 WBC (4.8-10.8) K/uL RBC (4.2-5.4) M/uL Hgb (12.0-16.0) g/dL POC Hgb 13.3 (12.0-16.0) g/dl Hct (37-47) % POC Hct 39 (37-47) % MCV (80-100) fL MCH (25-34) pg MCHC (32-36) g/dL RDW Std Deviation (36.4-46.3) fL RDW Coeff of Raul (11.5-14.5) % Plt Count (130-400) K/uL MPV (7.4-10.4) fL Immature Gran % (Auto) % Neut % (Auto) % Lymph % (Auto) % Meagher % (Auto) % Eos % (Auto) % Baso % (Auto) % Neut # (Auto) (1.4-6.5) K/uL Lymph # (Auto) (1.2-3.4) K/uL Meagher # (Auto) (0.11-0.59) K/uL Eos # (Auto) (0-0.5) K/uL Baso # (Auto) (0-0.2) K/uL Immature Gran # (Auto) (0.00-0.02) K/uL POC Sodium 136 (135-144) mmol/L Sodium (136-145) mmol/L POC Potassium 4.2 (3.3-5.0) mmol/L Potassium (3.5-5.1) mmol/L POC Chloride 107 (101-112) mmol/L Chloride (98-107) mmol/L Carbon Dioxide (21-32) mmol/L POC Total CO2 17 L (24-31) mmol/L Anion Gap (3-11) POC Anion Gap 18.0 (16-25) mmol/L POC BUN 19 H (7-18) mg/dl BUN (7-18) mg/dl Creatinine (0.6-1.2) mg/dl POC Creatinine 1.1 (0.6-1.3) mg/dl Est Cr Clr Drug Dosing ml/min Est GFR ( Amer) Est GFR (Non-Af Amer) BUN/Creatinine Ratio (10-20) Glucose (70-99) mg/dl POC Glucose (other) 181 H (70-99) mg/dl Lactate 4.3 H* 5.3 H* (0.4-2.0) mmol/L Calcium (8.5-10.1) mg/dl POC Ioniz Calcium Jennifer 1.20 (1.12-1.32) mmol/l Magnesium (1.8-2.4) mg/dl Total Bilirubin (0.2-1) mg/dl AST (15-37) U/L ALT (12-78) U/L Alkaline Phosphatase (45-117) U/L Troponin I (0-0.045) ng/ml Total Protein (6.4-8.2) gm/dl Albumin (3.4-5.0) gm/dl Globulin (2.5-4.0) gm/dl Albumin/Globulin Ratio (0.9-2) TSH (0.300-4.500) uIu/ml Urine Color Urine Appearance (Clear) Urine pH (4.5-7.5) Ur Specific [place] (1.000-1.030) Urine Protein (Negative) Urine Glucose (UA) (Negative) Urine Ketones (Negative) Urine Blood (Negative) Urine Nitrite (Negative) Urine Bilirubin (Negative) Urine Urobilinogen (Negative) Ur Leukocyte Esterase (Negative) Urine WBC (Auto) (0-5) /hpf Urine RBC (Auto) (0-4) /hpf U Hyaline Cast (Auto) (0-5) /lpf U Epithel Cells (Auto) (0-5) /lpf Urine Bacteria (Auto) (Negative) Nasal Screen MRSA (PCR) (Negative) Stl C. diff Tox B Gene (Neg) COVID-19 Eval Order SARS-CoV-2, RNA, NAAT (NEGATIVE) 02/12/20 02/12/20 02/12/20 Range/Units 20:30 20:30 21:47 WBC (4.8-10.8) K/uL RBC (4.2-5.4) M/uL Hgb (12.0-16.0) g/dL POC Hgb (12.0-16.0) g/dl Hct (37-47) % POC Hct (37-47) % MCV (80-100) fL MCH (25-34) pg MCHC (32-36) g/dL RDW Std Deviation (36.4-46.3) fL RDW Coeff of Raul (11.5-14.5) % Plt Count (130-400) K/uL MPV (7.4-10.4) fL Immature Gran % (Auto) % Neut % (Auto) % Lymph % (Auto) % Meagher % (Auto) % Eos % (Auto) % Baso % (Auto) % Neut # (Auto) (1.4-6.5) K/uL Lymph # (Auto) (1.2-3.4) K/uL Meagher # (Auto) (0.11-0.59) K/uL Eos # (Auto) (0-0.5) K/uL Baso # (Auto) (0-0.2) K/uL Immature Gran # (Auto) (0.00-0.02) K/uL POC Sodium (135-144) mmol/L Sodium (136-145) mmol/L POC Potassium (3.3-5.0) mmol/L Potassium (3.5-5.1) mmol/L POC Chloride (101-112) mmol/L Chloride (98-107) mmol/L Carbon Dioxide (21-32) mmol/L POC Total CO2 (24-31) mmol/L Anion Gap (3-11) POC Anion Gap (16-25) mmol/L POC BUN (7-18) mg/dl BUN (7-18) mg/dl Creatinine (0.6-1.2) mg/dl POC Creatinine (0.6-1.3) mg/dl Est Cr Clr Drug Dosing ml/min Est GFR ( Amer) Est GFR (Non-Af Amer) BUN/Creatinine Ratio (10-20) Glucose (70-99) mg/dl POC Glucose (other) (70-99) mg/dl Lactate (0.4-2.0) mmol/L Calcium (8.5-10.1) mg/dl POC Ioniz Calcium Jennifer (1.12-1.32) mmol/l Magnesium (1.8-2.4) mg/dl Total Bilirubin (0.2-1) mg/dl AST (15-37) U/L ALT (12-78) U/L Alkaline Phosphatase (45-117) U/L Troponin I (0-0.045) ng/ml Total Protein (6.4-8.2) gm/dl Albumin (3.4-5.0) gm/dl Globulin (2.5-4.0) gm/dl Albumin/Globulin Ratio (0.9-2) TSH (0.300-4.500) uIu/ml Urine Color Urine Appearance (Clear) Urine pH (4.5-7.5) Ur Specific [place] (1.000-1.030) Urine Protein (Negative) Urine Glucose (UA) (Negative) Urine Ketones (Negative) Urine Blood (Negative) Urine Nitrite (Negative) Urine Bilirubin (Negative) Urine Urobilinogen (Negative) Ur Leukocyte Esterase (Negative) Urine WBC (Auto) (0-5) /hpf Urine RBC (Auto) (0-4) /hpf U Hyaline Cast (Auto) (0-5) /lpf U Epithel Cells (Auto) (0-5) /lpf Urine Bacteria (Auto) (Negative) Nasal Screen MRSA (PCR) Negative (Negative) Stl C. diff Tox B Gene (Neg) COVID-19 Eval Order [facility] SARS-CoV-2, RNA, NAAT NEGATIVE (NEGATIVE) 02/12/20 02/12/20 Range/Units 22:10 23:14 WBC (4.8-10.8) K/uL RBC (4.2-5.4) M/uL Hgb (12.0-16.0) g/dL POC Hgb (12.0-16.0) g/dl Hct (37-47) % POC Hct (37-47) % MCV (80-100) fL MCH (25-34) pg MCHC (32-36) g/dL RDW Std Deviation (36.4-46.3) fL RDW Coeff of Raul (11.5-14.5) % Plt Count (130-400) K/uL MPV (7.4-10.4) fL Immature Gran % (Auto) % Neut % (Auto) % Lymph % (Auto) % Meagher % (Auto) % Eos % (Auto) % Baso % (Auto) % Neut # (Auto) (1.4-6.5) K/uL Lymph # (Auto) (1.2-3.4) K/uL Meagher # (Auto) (0.11-0.59) K/uL Eos # (Auto) (0-0.5) K/uL Baso # (Auto) (0-0.2) K/uL Immature Gran # (Auto) (0.00-0.02) K/uL POC Sodium (135-144) mmol/L Sodium (136-145) mmol/L POC Potassium (3.3-5.0) mmol/L Potassium (3.5-5.1) mmol/L POC Chloride (101-112) mmol/L Chloride (98-107) mmol/L Carbon Dioxide (21-32) mmol/L POC Total CO2 (24-31) mmol/L Anion Gap (3-11) POC Anion Gap (16-25) mmol/L POC BUN (7-18) mg/dl BUN (7-18) mg/dl Creatinine (0.6-1.2) mg/dl POC Creatinine (0.6-1.3) mg/dl Est Cr Clr Drug Dosing ml/min Est GFR ( Amer) Est GFR (Non-Af Amer) BUN/Creatinine Ratio (10-20) Glucose (70-99) mg/dl POC Glucose (other) (70-99) mg/dl Lactate 2.2 H* (0.4-2.0) mmol/L Calcium (8.5-10.1) mg/dl POC Ioniz Calcium Jennifer (1.12-1.32) mmol/l Magnesium (1.8-2.4) mg/dl Total Bilirubin (0.2-1) mg/dl AST (15-37) U/L ALT (12-78) U/L Alkaline Phosphatase (45-117) U/L Troponin I (0-0.045) ng/ml Total Protein (6.4-8.2) gm/dl Albumin (3.4-5.0) gm/dl Globulin (2.5-4.0) gm/dl Albumin/Globulin Ratio (0.9-2) TSH (0.300-4.500) uIu/ml Urine Color Urine Appearance (Clear) Urine pH (4.5-7.5) Ur Specific [place] (1.000-1.030) Urine Protein (Negative) Urine Glucose (UA) (Negative) Urine Ketones (Negative) Urine Blood (Negative) Urine Nitrite (Negative) Urine Bilirubin (Negative) Urine Urobilinogen (Negative) Ur Leukocyte Esterase (Negative) Urine WBC (Auto) (0-5) /hpf Urine RBC (Auto) (0-4) /hpf U Hyaline Cast (Auto) (0-5) /lpf U Epithel Cells (Auto) (0-5) /lpf Urine Bacteria (Auto) (Negative) Nasal Screen MRSA (PCR) (Negative) Stl C. diff Tox B Gene Negative Cdiff Gene (Neg) COVID-19 Eval Order SARS-CoV-2, RNA, NAAT (NEGATIVE) Administered Medications Sodium Chloride (Nss 1000ml) 1,000 mls @ 125 mls/hr IV .Q8H NATHEN Stop: 02/13/20 01:44 Last Admin: 02/12/20 17:54 Dose: 125 mls/hr Documented by: [id number] Discontinued Medications Diphenhydramine HCl (Diphenhydramine 50 Mg/Ml Vial) 12.5 mg IV NOW STA Stop: 02/12/20 17:42 Last Admin: 02/12/20 17:51 Dose: 12.5 mg Documented by: [id number] Sodium Chloride (Nss) 500 mls @ 999 mls/hr IV .Q31M NATHEN Stop: 02/12/20 18:15 Last Infusion: 02/12/20 19:33 Dose: 0 mls/hr Documented by: [id number] Admin: 02/12/20 17:47 Dose: 999 mls/hr Documented by: [id number] Diphenhydramine HCl 12.5 mg/ (Syringe) 0.25 mls @ 1 mls/hr IV NOW STA Stop: 02/12/20 17:46 Last Admin: 02/12/20 17:51 Dose: Not Given Documented by: [id number] Cefepime HCl (Maxipime) 2,000 mg in 20 mls @ 5 mls/min IV NOW STA; Protocol Stop: 02/12/20 18:14 Last Admin: 02/12/20 19:10 Dose: 5 mls/min Documented by: [id number] Vancomycin HCl 1,500 mg/ (Sodium Chloride) 530 mls @ 200 mls/hr IV NOW ONE Stop: 02/12/20 20:49 Last Admin: 02/12/20 19:43 Dose: 200 mls/hr Documented by: [id number] Sodium Chloride (Nss 1000ml) 500 mls @ 999 mls/hr IV .Q31M ONE Stop: 02/12/20 18:42 Last Infusion: 02/12/20 19:33 Dose: 0 mls/hr Documented by: [id number] Admin: 02/12/20 18:39 Dose: 999 mls/hr Documented by: [id number] Sodium Chloride (Nss 1000ml) 1,000 mls @ 999 mls/hr IV .Q1H1M ONE Stop: 02/12/20 20:04 Last Infusion: 02/12/20 20:58 Dose: 0 mls/hr Documented by: [id number] Admin: 02/12/20 19:10 Dose: 999 mls/hr Documented by: [id number] Ioversol (Optiray 320 125ml) 120 ml IV ONCE ONE Stop: 02/12/20 19:29 Last Admin: 02/12/20 19:28 Dose: 120 ml Documented by: [id number] Methylprednisolone (Methylprednisolone 125 Mg/2 Ml Vial) 125 mg IV NOW STA Stop: 02/12/20 17:33 Last Admin: 02/12/20 17:51 Dose: 125 mg Documented by: [id number] Metoclopramide HCl (Metoclopramide Hcl Inj 5 Mg/Ml 2 Ml Vial) 5 mg IV ONE ONE Stop: 02/12/20 17:33 Last Admin: 02/12/20 17:51 Dose: 5 mg Documented by: [id number] Ondansetron HCl (Ondansetron Inj 2 Mg/Ml 2 Ml Vial) Confirm Administered Dose 4 mg .ROUTE .STK-MED ONE Stop: 02/12/20 17:29 Last Admin: 02/12/20 17:31 Dose: 2 mg Documented by: [id number] Sodium Biphosphate/Sodium Phosphate (Sod Phosphate/Sod Biphosphate Enema 132 Ml Btl) 132 ml GA NOW STA Stop: 02/12/20 20:17 Last Admin: 02/12/20 20:28 Dose: 132 ml Documented by: [id number] Discharge Plan Visit Data Chief Complaint: Altered Mental Status Stated Complaint: AB PAIN, AMS ED Provider: Mart Scherer Discharge Problem: Sepsis, Acute hypotension, Leukocytosis, Pneumonia, Ileus Forms Stand Alone Forms: [facility] Prescriptions Prescriptions: No Action ascorbic acid (vitamin C) [Vitamin C] 250 mg Tablet 250 mg PO BID RF: 0 calcium carbonate [Calcium 500] 500 mg calcium (1,250 mg) Tablet,Chewable 500 mg PO BID RF: 0 lisinopril 40 mg Tablet 40 mg PO QAM RF: 0 apple cider vinegar 500 mg Tablet 500 mg PO BID RF: 0 multivitamin Tablet,Chewable 1 tab PO BID RF: 0 omeprazole 20 mg Tablet,Disintegrat, Delay Rel 20 mg PO QAM RF: 0 turmeric 400 mg Capsule 400 mg PO QAM RF: 0 aspirin 81 mg Tablet,Delayed Release (Dr/Ec) 81 mg PO BID 30 Days Qty: 60 RF: 0 acetaminophen 500 mg Tablet 1,000 mg PO Q8 14 Days Qty: 84 RF: 0 doxycycline hyclate 100 mg capsule 100 mg PO BID 14 Days Qty: 28 RF: 1 polyethylene glycol 3350 [Miralax] 17 gram powder in packet 17 g PO DAILY PRN (Reason: constipation) Qty: 5 RF: 0 clindamycin HCl 300 mg capsule 300 mg PO TID 7 Days Qty: 21 RF: 0
--- NOTE | 2020-02-12 21:40 | History & Physical Report ---
Date of Service February 12, 2020 Assessment & Plan (1) Sepsis: Roopa Alonso is a 79 yo female with h/o HTN, GERD and recent right TKA on 02/04 who presents to [facility] ED on 02/11 for one day of fever/chills (measured up to 100.7F at home), nausea and worsening abdominal pain. Sepsis - hypotensive/tachycardic, elevated WBC 20.5 with neutrophilic predominance and left shift, lactate 4.3 --> 5.3 - CXR showed right perihilar airspace opacities - CT abd/pelv showed ileus, possible colitis, possible gastritis, distended/fluid-filled esophagus - suspect sepsis 2/2 PNA vs colitis/toxic megacolon - was given Vanc/Cefepime IV x1 in the ED, will continue both for empiric coverage - MRSA nares ordered - c-diff ag and stool cx ordered given recent Clindamycin use post-operatively - follow blood cx - continue IVFs with NSS @125cc/hr - trend CBC daily Ileus - only 1 BM since right TKA one week ago, CT abd/pelv findings as stated above, associated nausea/heartburn/regurgitation - suspect 2/2 narcotic pain medications - fleet enema given in the ED --> BM x1 - discussed the option of placing an NG tube to avoid complications such as aspiration pneumonia, but the patient elected to defer NG tube - she would like to see if her symptoms improve after BMs - would consider NG tube placement if no improvement in nausea/heartburn/regurgitation tomorrow - partial bowel rest with clear liquid diet, can advance as tolerated - PRN fleet enema/Miralax ordered - follow clinically for improvement Elevated Troponin - Troponin .048, no chest pain or ST/T changes on EKG - suspect demand ischemia 2/2 sepsis - trend Trop in the AM - PRN EKG for chest pain RAMON - Cr 1.33, baseline .92-.98 - suspect pre-renal injury 2/2 sepsis - continue IVFs as mentioned above - held home Lisinopril due to nephrotoxic effects - trend BMP daily HTN - hypotensive in the hospital 2/2 sepsis - held Lisinopril as mentioned above GERD - Protonix 20 mg PO QAM per hospital formulary FEN/GI: Full liquids/AAT, NSS 125cc/hr DVT Prophylaxis: Heparin 5000 units SQ Q12H Code Status: Conditional Code - no invasive airway or mechanical ventilation, but wants chest compressions/defibrillation/other parts of ACLS algorithm Disposition: PCU with tele (2) Acute hypotension: (3) Leukocytosis: (4) Pneumonia: (5) Ileus: (6) History of total right knee replacement: (7) Hypertension: (8) GERD (gastroesophageal reflux disease): (9) Acute kidney injury: (10) Elevated troponin: Admission and Anticipated Discharge Date Admission Date: 02/12/2020 History of Present Illness Chief Complaint: AMS Primary Care Provider: Madeline Suresh MD Roopa Alonso is a 79 yo female with h/o HTN, GERD and recent right TKA on 02/04 who presents to [facility] ED on 02/11 for one day of fever/chills (measured up to 100.7F at home), nausea and worsening abdominal pain. Patient denies chest pain/palpitations, SOB, cough, or wheezing since surgery. Her post-operative leg pain has been well controlled with PRN Percocet, although the patient believes this has made her abdominal pain worse due to lack of BM - only had one hard BM since surgery. Patient's granddaughter called EMS after patient felt like she was going to pass out when straining for a BM on the toilet. Patient was hypotensive and tachycardic when EMS arrived; she was given Zofran and Narcan x1 which led to mild improvement in VS but patient reportedly had mild tongue swelling after these medications - reports that tongue swelling is now mostly resolved. In the ED, patient was persistently hypotensive and tachycardic and was given several NSS boluses (total of 2L). She was also given Zofran, Benadryl and Reglan IV for nausea; fleet enema x1 for constipation. She had elevated WBC 20.5, uptrending lactate 4.3 --> 5.3, CXR showed right perihilar airspace opacities, CT abd/pelv showed ileus/colitis/gastritis/dilated esophagus - was given Vanc/Cefepime IV x1. Allergies Allergy/AdvReac Type Severity Reaction Status Date / Time Penicillins Allergy Mild hives, Verified 02/12/20 20:42 dyspnea allopurinol Allergy Unknown diffuse Verified 02/12/20 20:42 body rash, flushing amoxicillin Allergy Unknown hives Verified 02/12/20 20:42 febuxostat Allergy Unknown eyes Verified 02/12/20 20:42 swelled shut Sulfa (Sulfonamide Allergy Unknown unknown Verified 02/12/20 20:42 Antibiotics) reaction lactose AdvReac Intermediate GI upset Verified 02/12/20 20:42 nickel AdvReac Mild skin Verified 02/12/20 20:42 redness naproxen AdvReac Unknown palpitation Verified 02/12/20 20:42 s Home Medications Medication Instructions Recorded Confirmed Type apple cider vinegar 500 mg PO BID 01/15/20 02/12/20 History ascorbic acid (vitamin C) [Vitamin 250 mg PO BID 01/15/20 02/12/20 History C] calcium carbonate [Calcium 500] 500 mg PO BID 01/15/20 02/12/20 History lisinopril 40 mg PO QAM 01/15/20 02/12/20 History multivitamin 1 tab PO BID 01/15/20 02/12/20 History omeprazole 20 mg PO QAM 01/15/20 02/12/20 History turmeric 400 mg PO QAM 01/15/20 02/12/20 History acetaminophen 1,000 mg PO Q8 14 Days #84 tab 02/06/20 02/12/20 Rx aspirin 81 mg PO BID 30 Days #60 tab 02/06/20 02/12/20 Rx doxycycline hyclate 100 mg PO BID 14 Days #28 cap 02/06/20 02/12/20 Rx polyethylene glycol 3350 [Miralax] 17 g PO DAILY PRN #5 ea 02/06/20 02/12/20 Rx clindamycin HCl 300 mg PO TID 7 Days #21 cap 02/07/20 02/12/20 Rx Past Med/Surg History Medical History DVT (deep venous thrombosis) RLE (15+ years ago) after long travel Fatty liver Gout Hiatal hernia sliding Hypertension Hypothyroidism euthyroid off meds, under surveillance Kidney cysts under surveillance Myocardial Infarction possible ID 10+ years ago, medically managed Neuropathy of both feet Osteoarthritis Osteoporosis Spinal stenosis Torn rotator cuff right Surgical History History of bilateral tubal ligation History of bladder surgery sling History of hysterectomy History of myringotomy right History of surgery on left wrist History of tonsillectomy History of tooth extraction Hx of cervical spine surgery discectomy x3 levels + CAGE (2011) Hx of elbow surgery LEFT Social History Smoking Status: Never smoker Second Hand Exposure: No; Hx Alcohol Use: Yes Alcohol type: wine Hx Substance Use: No Preferred Language: Latvian Communication Ability: Effective Health And Wellness Director Required: No Beliefs That Will Affect Care: None marital status: / Current Living Situation: Alone Other Information That Helps Us Care for You: No Feels Safe at Home: Yes Safety Concerns: Feels Safe At This Time Assistive Devices: Walker Review of Systems Constitutional: + fever, + chills, + fatigue and + weakness Eyes: no worsening vision Ear, Nose, Mouth, Throat: no hearing loss Respiratory: no cough, no dyspnea and no wheezing Cardiovascular: no chest pain, no palpitations and no edema Gastrointestinal: + abdominal pain, + belching, + heartburn, + nausea and + constipation; no vomiting Genitourinary: no dysuria, no urinary frequency and no flank pain Musculoskeletal: + back pain and + joint pain Integumentary: no rash Neurologic: no syncope Psychiatric: no behavioral changes Hematologic / Lymphatic: no easy bleeding and no easy bruising Physical Exam Constitutional: + ill appearing and + obese; no acute distress Eyes: PERRL, conjunctivae normal, anicteric sclerae Respiratory: + labored breathing (mild); no cough Auscultation: + diminished lung sounds (on right); no crackles and no wheezes Cardiovascular: Rate/Rhythm: regular rhythm and + tachycardic Heart Sounds: normal S1 and normal S2; no murmur Extremities: no edema Gastrointestinal (Abdomen): Inspection/Auscultation: abdomen normal to inspection and + hyperactive bowel sounds; abdomen not distended Percussion/Palpation: + abdomen tender (TTP throughout but worst in lower quadrants) and abdomen soft; no guarding Skin: no rashes, warm and dry Psychiatric: A+Ox3, euthymic affect Lymphatic: no cervical lymphadenopathy Results & Data Results & Data ([facility]) Vital Signs (Past 12 Hours) Vital Signs Temp Pulse Resp BP BP Pulse Ox 02/12/20 20:05 131/62 02/12/20 19:00 126 H 31 H 101/65 93 02/12/20 18:40 126 H 30 H 87/60 L 94 02/12/20 18:00 144 H 36 H 93/75 L 02/12/20 17:57 142 H 33 H 82/61 L 02/12/20 17:55 93 02/12/20 17:46 127 H 32 H 76/48 L 02/12/20 17:32 36.5 C 125 H 28 H 75/47 L 88 L 02/12/20 17:29 130 H 20 75/47 L Code Status & VTE Plan Code Status Conditional Code - no invasive airway or mechanical ventilation, but wants chest compressions/defibrillation/other parts of ACLS algorithm VTE Prophylaxis Plan VTE Prophylaxis will be ordered: Yes Supervising Physician Co-Signing Physician Notes Attending addendum: I have physically seen this patient, have supervised the medical residents activities, and agree with the H&P unless as otherwise noted. Assessment and Plan: Sepsis/ileus/colitis/gastritis/fluid-filled esophagus- NPO Empiric antibiotics with vancomycin IV per pharmacokinetic monitoring and cefepime 1 g IV every 12 hours. Follow studies for C. difficile and stool cultures. Follow blood cultures NSS@125 mils per hour Elevated troponin/hypertension- Likely type II, supply demand mismatch- The patient will be admitted to telemetry for serial cardiac enzymes, serial EKG's, cardiac rhythm monitoring and a 2-D echocardiogram with Dopplers. Acute kidney injury- Creatinine 1.33 with baseline 0.92-0.98 Hold lisinopril. NSS at 125 mils per hour Repeat laboratories in a.m. Remaining orders and notations as noted Resident Activity Tracking Resident Involvement: Resident Care Provided Care Provided: Adult Hospital Medicine
[2020-02-12] MEDS ORDERED: VANCOMYCIN HCL 1,000 MG in SODIUM CHLORIDE 0.9% 500 ML IV SCH (22:15)
[2020-02-12] MEDS ORDERED: CEFEPIME 2,000 MG in SYRINGE 0 ML IV SCH (22:15)
[2020-02-13] MEDS ORDERED: CEFEPIME CONSULT ACTIVE PRN (03:50)
[2020-02-13] MEDS ORDERED: POLYETHYLENE (MIRALAX) 17 GM PACK PO PRN (05:08)
[2020-02-13] MEDS ORDERED: SOD PHOSPHATE/SOD BIPHOSPHATE ENEMA 132 ML BTL PR PRN (05:08)
[2020-02-13] MEDS ORDERED: SODIUM CHLORIDE 0.9% 1000ML 1,000 ML IV ONE (07:46)
[2020-02-13 08:28] LABS: Hematocrit (blood only) 35.8 % (37-47); Hemoglobin 11.7 g/dL (12.0-16.0); Mean Corpuscular Hemoglobin 28.6 pg (25-34); Mean Corpuscular Volume 87.5 fL (80-100); Mean Platelet Volume 10.1 fL (7.4-10.4); Platelet Count 396 K/uL (130-400); RDW Coefficient of Variation 13.6 % (11.5-14.5); RDW Standard Deviation 43.5 fL (36.4-46.3); Red Blood Count 4.09 M/uL (4.2-5.4); White Blood Count 23.01 K/uL (4.8-10.8)
[2020-02-13 08:36] LABS: Mean Corpuscular Hgb Conc 32.7 g/dL (32-36)
[2020-02-13 08:51] LABS: Albumin Level 2.4 gm/dl (3.4-5.0); BUN Creatinine Ratio 17.3 (10-20); Calcium 8.2 mg/dl (8.5-10.1); Creatinine Clr Calc Pharmacy 25.8 ml/min; Est GFR (African American) 34.1; Est GFR (Non-African American) 29.4; Potassium 4.7 mmol/L (3.5-5.1)
[2020-02-13] MEDS: PANTOprazole 40 MG TAB PO SCH (09:05)
[2020-02-13] MEDS: CALCIUM CARBONATE 1250MG TAB PO SCH ×2 (09:05→20:29)
[2020-02-13] MEDS: ASPIRIN 81 MG ECTAB PO SCH ×2 (09:06→20:27)
[2020-02-13] MEDS: HEPARIN SOD 5,000 UNIT/0.5 ML VIAL SQ SCH ×2 (09:08→20:28)
[2020-02-13 09:09] LABS: Basophils # (auto) 0.01 K/uL (0-0.2); Immature Granulocytes % (auto) 0.4 %; Lymphocytes # (auto) 0.86 K/uL (1.2-3.4); Lymphocytes % (auto) 3.7 %; Monocytes # (auto) 0.75 K/uL (0.11-0.59); Monocytes % (auto) 3.3 %; Neutrophils # (auto) 21.29 K/uL (1.4-6.5); Neutrophils % (auto) 92.6 %
[2020-02-13 09:16] LABS: Albumin Globulin Ratio 0.6 (0.9-2); Bilirubin,Total 1.2 mg/dl (0.2-1); Globulin 3.9 gm/dl (2.5-4.0); Total Protein 6.3 gm/dl (6.4-8.2); Troponin I 0.047 ng/ml (0-0.045)
[2020-02-13] MEDS: CEFEPIME 2,000 MG in SYRINGE 0 ML IV SCH ×2 (09:50→20:27)
--- NOTE | 2020-02-13 11:02 | Pharmacy Report ---
Pharmacy Abx Dose Short Note - Date of Service February 13, 2020 - Assessment & Plan Assessment * Ms Alonso is a 79 year old F receiving Vanc/Cefepime for treatment of sepsis (2/2 ?pna, ?colitis/gastritis). * Pt had a R TKA on 02/05/20. * MRSA swab negative, BCx pending, stool cx pending Plan Vancomycin * Patient meets criteria for vancomycin AUC dosing nomogram * AUC/MADISON is the preferred PK/PD target for vancomycin * Target AUC/MADISON = 400-600 * AUC guided dosing is effective and associated with decreased risk of nephrotoxicity * Vanc 1500mg IV x1 dose in ED, then * Vanc 1250mg IV q24h * Will evaluate a level in a couple of days, if patient remains on vancomycin. Cefepime 2gm IV q12h, for CrCl 31mL/min Pharmacy will continue to follow and will adjust dose/frequency as necessary. Thank you.
--- NOTE | 2020-02-13 12:29 | Hospitalist Progress Note ---
Date of Service February 13, 2020 Assessment & Plan (1) Sepsis: Roopa Alonso is a 79 yo female with h/o HTN, GERD and recent right TKA on 02/04 who presents to [facility] ED on 02/11 for one day of fever/chills (measured up to 100.7F at home), nausea and worsening abdominal pain. Sepsis - hypotensive/tachycardic, elevated WBC 20.5 with neutrophilic predominance and left shift, lactate 4.3 --> 5.3 --> 2.2 - CXR showed right perihilar airspace opacities - CT abd/pelv showed ileus, possible colitis, possible gastritis, distended/fluid-filled esophagus - unclear source for infection at this moment - CXR is not convincing for pneumonia, but remains possible; CT abd did show possible subtle colitis, but unclear if this actually the cause; knee does have some residual swelling after surgery but doesn't look red and incision shows no outward signs of infection - Continue Vanc/Cefepime IV - MRSA nares negative - C.diff Ag negative - blood cx & stool cx pending - Urine cx ordered - continue IVFs with NSS @125cc/hr - trend CBC daily Ileus - only 1 BM since right TKA one week ago, CT abd/pelv findings as stated above, associated nausea/heartburn/regurgitation - suspect secondary to narcotic pain medications - fleet enema given in the ED--patient has had multiple BMs since - partial bowel rest with clear liquid diet, can advance as tolerated - PRN fleet enema/Miralax ordered - follow clinically Elevated Troponin - Troponin 0.048 on admission - no chest pain or ST/T changes on EKG - suspect demand ischemia secondary to sepsis - Troponin this AM at 0.047 - PRN EKG for chest pain RAMON - Cr 1.65, baseline .92-.98 - suspect pre-renal injury secondary to sepsis - continue IVFs as mentioned above - held home Lisinopril due to nephrotoxic effects - trend BMP daily HTN - hypotensive in the hospital secondary to sepsis - held Lisinopril as mentioned above GERD - Protonix 20 mg PO QAM per hospital formulary FEN/GI: Full liquids/AAT, NSS 125cc/hr DVT Prophylaxis: Heparin 5000 units SQ Q12H Code Status: Conditional Code - no invasive airway or mechanical ventilation, but wants chest compressions/defibrillation/other parts of ACLS algorithm Disposition: PCU with tele (2) Acute hypotension: (3) Leukocytosis: (4) Pneumonia: (5) Ileus: (6) History of total right knee replacement: (7) Hypertension: (8) GERD (gastroesophageal reflux disease): (9) Acute kidney injury: (10) Elevated troponin: Admission and Anticipated Discharge Date Admission Date: February 13, 2020 Supervising Physician Co-Signing Physician Notes Resident Physician Supervision Note: I was present with Dr. Faraz Morales during the history and exam. I discussed the case with the resident and agree with the findings and plan as documented in the note. Any exceptions or clarifications are listed here: None Challenging that pt has leukocytosis low grade fever without defined source, recent surgery, negative C diff. is covered by antibiotics of vancomycin and cefepime, she offers no focal complaints and feels better physical exam is unrevealing, lungs clear and leg is swollen and non tender. continue antibiotics and surveillance for infectious source Documented By: El Omalley MD Subjective Patient seen at bedside an dreports feeling much better than when she cam ein. [place] she was very weak and did have abdominal tenderness that was more pronounced when she came in. She says that at first she had thought the bilateral lower quadrant abd pain was from her hip and then developed sweats, felt warm, and started to feel weak to the point where she had to lay down on the floor. Denies loss of consciousness or fall. Also says she had been very constipated--requested enema in the ED and has since had multiple BMs. She currently denies CP, palpitations, SOB, cough, n/v, constipation. Review of Systems Review of Systems: All systems reviewed & are unremarkable except as noted in Subjective Physical Exam Constitutional: WD/WN, vitals as above no acute distress Respiratory: normal respiratory effort, lungs clear to auscultation Cardiovascular: Rate/Rhythm: + tachycardic Heart Sounds: normal S1 and normal S2; no gallop, no murmur and no cardiac rub Gastrointestinal (Abdomen): Inspection/Auscultation: abdomen normal to inspection and normal bowel sounds; abdomen not distended Percussion/Palpatio n: + abdomen tender (mild tenderness at both lower quadrants) Skin: no rashes, warm and dry Psychiatric: A+Ox3, euthymic affect Results & Data Results & Data ([facility]) Vital Signs (Past 12 Hours) Vital Signs Temp Pulse Pulse Resp BP BP BP 02/13/20 12:04 36.7 C 110 H 18 123/59 L 02/13/20 07:54 36.7 C 109 H 18 109/72 02/13/20 07:38 111 H 02/13/20 04:52 37.1 C 110 H 18 93/63 L 02/13/20 03:26 36.9 C 111 H 18 114/83 02/13/20 03:03 113 H 20 101/79 02/13/20 02:30 02/13/20 02:01 116 H 20 02/13/20 02:00 114 H 20 124/61 02/13/20 01:48 115 H 20 114/65 02/13/20 01:31 115 H 20 02/13/20 01:30 115 H 20 114/65 02/13/20 01:01 114 H 20 02/13/20 01:00 113 H 20 119/68 02/13/20 00:31 115 H 20 02/13/20 00:30 113 H 20 98/61 L Pulse Ox 02/13/20 12:04 96 02/13/20 07:54 93 02/13/20 07:38 02/13/20 04:52 94 02/13/20 03:26 94 02/13/20 03:03 95 02/13/20 02:30 88 L 02/13/20 02:01 88 L 02/13/20 02:00 02/13/20 01:48 02/13/20 01:31 02/13/20 01:30 02/13/20 01:01 02/13/20 01:00 02/13/20 00:31 02/13/20 00:30 Resident Activity Tracking Resident Involvement: Resident Care Provided Care Provided: Adult Hospital Medicine
[2020-02-13] MEDS ORDERED: SODIUM CHLORIDE 0.9% 1000ML 500 ML IV ONE ×2 (13:19→14:00)
[2020-02-13] MEDS ORDERED: SODIUM CHLORIDE 0.9% 500 ML IV ONE (14:00)
[2020-02-13] MEDS: SODIUM CHLORIDE 0.9% 1000ML 1,000 ML IV SCH ×2 (14:52→21:59)
[2020-02-13] MEDS ORDERED: VANCOMYCIN HCL 1,250 MG in SODIUM CHLORIDE 0.9% 250 ML IV SCH (16:00)
--- NOTE | 2020-02-13 16:09 | Billing Data ---
Date of Service February 13, 2020 Coding Level of Care Code 75473 Subseq Hosp Care Lvl 3
--- NOTE | 2020-02-13 16:09 | Billing Data ---
Date of Service February 13, 2020 Coding Level of Care Code 78839 Subseq Hosp Care Lvl 3
[2020-02-13] MEDS ORDERED: NITROGLYCERIN 2% OINTMENT 30GM TUBE EXT PRN (22:38)
[2020-02-14] MEDS: ACETAMINOPHEN 325 MG TAB PO PRN ×3 (03:42→21:46)
--- NOTE | 2020-02-14 05:59 | Billing Data ---
Date of Service February 14, 2020 Coding Level of Care Code 20475 Initial Inpt Care Lvl 3
[2020-02-14] MEDS: CALCIUM CARBONATE 1250MG TAB PO SCH ×2 (07:48→21:11)
[2020-02-14] MEDS: PANTOprazole 40 MG TAB PO SCH (07:48)
[2020-02-14] MEDS: ASPIRIN 81 MG ECTAB PO SCH ×2 (07:48→21:11)
[2020-02-14] MEDS: HEPARIN SOD 5,000 UNIT/0.5 ML VIAL SQ SCH ×2 (07:48→21:11)
[2020-02-14] MEDS: CEFEPIME 2,000 MG in SYRINGE 0 ML IV SCH ×2 (07:53→20:59)
[2020-02-14 09:07] LABS: Basophils # (auto) 0.01 K/uL (0-0.2); Basophils % (auto) 0.1 %; Eosinophils # (auto) 0.05 K/uL (0-0.5); Eosinophils % (auto) 0.3 %; Hematocrit (blood only) 29.3 % (37-47); Hemoglobin 9.4 g/dL (12.0-16.0); Immature Granulocytes # (auto) 0.08 K/uL (0.00-0.02); Immature Granulocytes % (auto) 0.4 %; Lymphocytes # (auto) 1.04 K/uL (1.2-3.4); Lymphocytes % (auto) 5.7 %; Mean Corpuscular Hemoglobin 28.4 pg (25-34); Mean Corpuscular Hgb Conc 32.1 g/dL (32-36); Mean Corpuscular Volume 88.5 fL (80-100); Mean Platelet Volume 9.8 fL (7.4-10.4); Monocytes # (auto) 0.72 K/uL (0.11-0.59); Neutrophils % (auto) 89.5 %; Platelet Count 352 K/uL (130-400); RDW Standard Deviation 45.5 fL (36.4-46.3); Red Blood Count 3.31 M/uL (4.2-5.4)
[2020-02-14 09:43] LABS: Alanine Aminotransferase 39 U/L (12-78); Albumin Globulin Ratio 0.5 (0.9-2); Alkaline Phosphatase 265 U/L (45-117); Aspartate Aminotransferase 41 U/L (15-37); BUN Creatinine Ratio 25.7 (10-20); Bilirubin,Total 0.5 mg/dl (0.2-1); Blood Urea Nitrogen 26 mg/dl (7-18); Calcium 8.1 mg/dl (8.5-10.1); Carbon Dioxide 20 mmol/L (21-32); Chloride 115 mmol/L (98-107); Est GFR (African American) 62.5; Est GFR (Non-African American) 53.9; Globulin 3.9 gm/dl (2.5-4.0); Glucose 119 mg/dl (70-99); Magnesium 2.4 mg/dl (1.8-2.4); Sodium 140 mmol/L (136-145); Total Protein 5.9 gm/dl (6.4-8.2); Troponin I < 0.015 ng/ml (0-0.045)
--- NOTE | 2020-02-14 13:07 | Hospitalist Progress Note ---
Date of Service February 14, 2020 Assessment & Plan (1) Sepsis: Roopa Alonso is a 79 yo female with h/o HTN, GERD and recent right TKA on 02/04 who presents to [facility] ED on 02/11 for one day of fever/chills (measured up to 100.7F at home), nausea and worsening abdominal pain. Sepsis - hypotensive/tachycardic, elevated WBC 20.5 with neutrophilic predominance and left shift, lactate 4.3 --> 5.3 --> 2.2 - CXR showed right perihilar airspace opacities - CT abd/pelv showed ileus, possible colitis, possible gastritis, distended/fluid-filled esophagus - Continue Cefepime IV - Discontinued Vancomycin as it seems more likely that the sepsis was secondary to colitis--never had pneumonia sxs, knee shows no signs of infection - Will consider stepping down antibiotics further and switching cefepime to something less broad depending on how she does off the vancomycin - MRSA nares negative, C.diff Ag negative, blood cx neg, Urine cx neg - stool cx pending - trend CBC daily Ileus - only 1 BM since right TKA one week ago, CT abd/pelv findings as stated above, associated nausea/heartburn/regurgitation - suspect secondary to narcotic pain medications - fleet enema given in the ED--patient has had multiple BMs since - PRN fleet enema/Miralax ordered - patient having many loose BMs after enema - follow clinically Elevated Troponin - Troponin 0.048 on admission - no chest pain or ST/T changes on EKG - suspect demand ischemia secondary to sepsis - Troponin this AM negative - PRN EKG for chest pain RAMON - suspect pre-renal injury secondary to sepsis - Cr 1.0 today--back WNL - held home Lisinopril due to nephrotoxic effects - trend BMP daily HTN - Patient having some hypertensive readings today - Lisinopril held as mentioned above--will consider restarting in AM as creatinine seems to have trended back down to normal GERD - Protonix 20 mg PO QAM per hospital formulary FEN/GI: Full liquids/AAT, NSS 125cc/hr DVT Prophylaxis: Heparin 5000 units SQ Q12H Code Status: Conditional Code - no invasive airway or mechanical ventilation, but wants chest compressions/defibrillation/other parts of ACLS algorithm Disposition: Med/surg (2) Acute hypotension: (3) Leukocytosis: (4) Pneumonia: (5) Ileus: (6) History of total right knee replacement: (7) Hypertension: (8) GERD (gastroesophageal reflux disease): (9) Acute kidney injury: (10) Elevated troponin: Admission and Anticipated Discharge Date Admission Date: February 13, 2020 Supervising Physician Co-Signing Physician Notes I personally examined the patient and verified all ellington points of history and exam, discussed case, and agree with decision making with Dr Morales feeling better - still feels terrible but notes that stomach is "99% better" than when first admitted. still with frequent diarrhea but mostly when moving and not long after eating --> and nursing notes that this is in small volumes even though pt still seeing fairly high frequency vitals noted nad heent nc at mmm breathing unlabored no accessory muscles good effort skin no rashes no pallor or icterus neuro no focal deficits abd soft nd mild diffuse tender no guarding no rebound ext R knee dressed no erythema no effusions, b/l no calf tenderness or erythema, approx equal ~trace to 1+ edema sepsis - colitis on CT fits best w clinical picture - improving. if pneumonia is real at all it is likely aspiration (she noted lots of small vomits prior to admission as well) and very low likelihood MRSA - so OK to stop vanco. continue cefepime for now - consider swithching to something like unasyn in next day or so depending on progress. does appear to be improving. stable for medical questionable pneumonia - possible aspiration pneumonia as above noted. low risk for MRSA pneumonia. abx for colitis will cover this as well improving. otherwise as above. troponin likely represents mild demand myocardial ischemia. heparin for DVT proph Subjective Patient seen at bedside this morning. She reports feeling much better and her only complaint is that she has been having diarrhea since the enema in the ED. This has become very annoying to her and she says she will sometimes get some abdominal pain right before she has to have a BM. Patient's nurse is in the room and reports that her BMs have been getting progressively smaller. Denies fever, chills, CP, palpitations, SOB, n/v. Review of Systems Review of Systems: All systems reviewed & are unremarkable except as noted in Subjective Physical Exam Constitutional: WD/WN, vitals as above no acute distress Respiratory: normal respiratory effort, lungs clear to auscultation Cardiovascular: Rate/Rhythm: + tachycardic Heart Sounds: normal S1 and normal S2; no gallop, no murmur and no cardiac rub Gastrointestinal (Abdomen): normal bowel sounds, soft, nontender, no hepatosplenomegaly Skin: no rashes, warm and dry Psychiatric: A+Ox3, euthymic affect Results & Data Results & Data ([facility]) Vital Signs (Past 12 Hours) Vital Signs Temp Pulse Resp BP Pulse Ox 02/14/20 11:35 36.6 C 97 H 18 152/83 H 97 02/14/20 07:39 37.1 C 104 H 18 139/77 95 02/14/20 06:25 37 C 107 H 20 127/71 92 Resident Activity Tracking Resident Involvement: Resident Care Provided Care Provided: Adult Hospital Medicine
--- NOTE | 2020-02-14 15:45 | Billing Data ---
Date of Service February 14, 2020 Coding Level of Care Code 56958 Subseq Hosp Care Lvl 3
[2020-02-14] MEDS: ADVANCED PROBIOTIC 1250 MG CAPSULE PO SCH ×2 (18:26→18:37)
--- NOTE | 2020-02-14 21:37 | Electrocardiogram Report ---
Test Reason : Blood Pressure : / mmHG Vent. Rate : 126 BPM Atrial Rate : 126 BPM P-R Int : 138 ms QRS Dur : 118 ms QT Int : 330 ms P-R-T Axes : 057 -03 046 degrees QTc Int : 477 ms Sinus tachycardia Incomplete right bundle branch block Nonspecific ST and T wave abnormality Abnormal ECG When compared with ECG of 24-JAN-2020 12:14, No significant change Confirmed by Albin Nguyen ([id number]) on 02/14/2020 9:36:52 PM Referred By: REFERRED SELF Confirmed By:Albin Nguyen
--- NOTE | 2020-02-14 22:57 | Electrocardiogram Report ---
Test Reason : Blood Pressure : / mmHG Vent. Rate : 116 BPM Atrial Rate : 116 BPM P-R Int : 154 ms QRS Dur : 134 ms QT Int : 366 ms P-R-T Axes : 046 -12 026 degrees QTc Int : 508 ms Poor data quality, interpretation may be adversely affected Sinus tachycardia Right bundle branch block Minimal voltage criteria for LVH, may be normal variant Abnormal ECG When compared with ECG of 12-FEB-2020 17:33, (unconfirmed) No significant change Confirmed by Albin Nguyen ([id number]) on 02/14/2020 10:57:22 PM Referred By: REFERRED SELF Confirmed By:Albin Nguyen
--- NOTE | 2020-02-14 22:58 | Electrocardiogram Report ---
Test Reason : Blood Pressure : / mmHG Vent. Rate : 107 BPM Atrial Rate : 107 BPM P-R Int : 144 ms QRS Dur : 136 ms QT Int : 368 ms P-R-T Axes : 054 -11 023 degrees QTc Int : 491 ms Sinus tachycardia Right bundle branch block Minimal voltage criteria for LVH, may be normal variant Abnormal ECG When compared with ECG of 13-FEB-2020 22:15, (unconfirmed) No significant change Confirmed by Albin Nguyen ([id number] on 02/14/2020 10:58:10 PM Referred By: REFERRED SELF Confirmed By:Albin Nguyen
[2020-02-15 06:16] LABS: Basophils # (auto) 0.02 K/uL (0-0.2); Basophils % (auto) 0.1 %; Eosinophils # (auto) 0.29 K/uL (0-0.5); Eosinophils % (auto) 1.7 %; Hematocrit (blood only) 28.3 % (37-47); Hemoglobin 9.2 g/dL (12.0-16.0); Immature Granulocytes # (auto) 0.04 K/uL (0.00-0.02); Immature Granulocytes % (auto) 0.2 %; Lymphocytes # (auto) 1.33 K/uL (1.2-3.4); Lymphocytes % (auto) 7.8 %; Mean Corpuscular Hemoglobin 28.7 pg (25-34); Mean Corpuscular Hgb Conc 32.5 g/dL (32-36); Mean Corpuscular Volume 88.2 fL (80-100); Mean Platelet Volume 9.9 fL (7.4-10.4); Monocytes % (auto) 4.1 %; Neutrophils # (auto) 14.62 K/uL (1.4-6.5); Neutrophils % (auto) 86.1 %; Platelet Count 387 K/uL (130-400); RDW Coefficient of Variation 13.9 % (11.5-14.5); RDW Standard Deviation 45.1 fL (36.4-46.3); Red Blood Count 3.21 M/uL (4.2-5.4)
[2020-02-15 06:43] LABS: BUN Creatinine Ratio 27.2 (10-20); Calcium 8.6 mg/dl (8.5-10.1); Creatinine Clr Calc Pharmacy 64.2 ml/min; Est GFR (African American) 97.6; Est GFR (Non-African American) 84.2; Potassium 3.4 mmol/L (3.5-5.1)
[2020-02-15] MEDS ORDERED: POTASSIUM CHLORIDE 20 MEQ/15 ML UDC PO STA (07:06)
[2020-02-15] MEDS: LACTOBACILLUS ACIDOPHILUS 1 GM PACK PO SCH ×3 (08:37→17:10)
[2020-02-15] MEDS: ASPIRIN 81 MG ECTAB PO SCH ×2 (08:38→20:30)
[2020-02-15] MEDS: PANTOprazole 40 MG TAB PO SCH (08:38)
[2020-02-15] MEDS: CALCIUM CARBONATE 1250MG TAB PO SCH ×2 (08:39→20:30)
[2020-02-15] MEDS: HEPARIN SOD 5,000 UNIT/0.5 ML VIAL SQ SCH ×2 (08:40→20:31)
[2020-02-15] MEDS: CEFEPIME 2,000 MG in SYRINGE 0 ML IV SCH (08:50)
--- NOTE | 2020-02-15 10:56 | Hospitalist Progress Note ---
Date of Service February 15, 2020 Assessment & Plan (1) Sepsis: Roopa Alonso is a 79 yo female with h/o HTN, GERD and recent right TKA on 02/04 who presents to [facility] ED on 02/11 for one day of fever/chills (measured up to 100.7F at home), nausea and worsening abdominal pain. Sepsis - hypotensive/tachycardic, elevated WBC 20.5 with neutrophilic predominance and left shift, lactate 4.3 --> 5.3 --> 2.2 - CXR showed right perihilar airspace opacities - CT abd/pelv showed ileus, possible colitis, possible gastritis, distended/fluid-filled esophagus - MRSA nares negative, C.diff Ag negative, blood cx neg, Urine cx neg, stool cx negative - D/c'd cefepime IV today--switched to PO cipro and flagyl as patient is looking closer to discharge - Will keep an eye on how she tolerates these--likely she will be dc with these for 10 days total treatment - Discontinued Vancomycin as it seems more likely that the sepsis was secondary to colitis--never had pneumonia sxs, knee shows no signs of infection - trend CBC daily Ileus - only 1 BM since right TKA one week ago, CT abd/pelv findings as stated above, associated nausea/heartburn/regurgitation - suspect secondary to narcotic pain medications - fleet enema given in the ED--patient has had multiple BMs since - PRN fleet enema/Miralax ordered - patient having many loose BMs after enema - Likely her diarrhea is also infectious in nature and it has been improving to some degree - Offered Imodium to help but she prefers not to because she has had trouble with resulting constipation in the past - follow clinically Elevated Troponin (resolved) - Troponin 0.048 on admission - no chest pain or ST/T changes on EKG - suspect demand ischemia secondary to sepsis - Troponin negative (02/13) - PRN EKG for chest pain RAMON (resolved) - suspect pre-renal injury secondary to sepsis - Cr back WNL - held home Lisinopril due to nephrotoxic effects - trend BMP daily HTN - Patient having some hypertensive readings today - Lisinopril held as mentioned above--will consider restarting in AM as creatinine seems to have trended back down to normal GERD - Protonix 20 mg PO QAM per hospital formulary FEN/GI: Regular, lactose intolerant DVT Prophylaxis: Heparin 5000 units SQ Q12H Code Status: Conditional Code - no invasive airway or mechanical ventilation, but wants chest compressions/defibrillation/other parts of ACLS algorithm Disposition: Med/surg (2) Acute hypotension: (3) Leukocytosis: (4) Pneumonia: (5) Ileus: (6) History of total right knee replacement: (7) Hypertension: (8) GERD (gastroesophageal reflux disease): (9) Acute kidney injury: (10) Elevated troponin: Admission and Anticipated Discharge Date Admission Date: February 13, 2020 Supervising Physician Co-Signing Physician Notes I personally examined the patient and verified all ellington points of history and exam, discussed case, and agree with decision making with Dr Morales continues to slowly feel better. still some diarrhea. belly pain improving. vitals noted nad heent nc at mmm breathing unlabored no accessory muscles good effort skin no rashes no pallor or icterus neuro no focal deficits abd soft nd mild tender really only lower abdomen now, no guarding no rebound sepsis - colitis on CT fits best w clinical picture - improving. if pneumonia is real at all it is likely aspiration (she noted lots of small vomits prior to admission as well) and very low likelihood MRSA - now off vanco. was quite ill - transitioning to PO abx but will utilize cipro/flagyl questionable pneumonia - possible aspiration pneumonia as above noted. low risk for MRSA pneumonia. abx for colitis will cover this as well improving. otherwise as above. troponin likely represents mild demand myocardial ischemia. hopefully home tomorrow heparin for DVT proph Subjective Patient says she "feels like hell" today. However, when asked how she feels compared to admission she states she is 99% better. Clarifies that her main complaint now is the diarrhea she's continued to have. It has been decreasing in quantity but she's found that movement and meals usually activate her bowels and she has trouble holding it in. We did offer Imodium, which would not stop it necessarily, but could help reduce the amount of times she has BMs throughout the day.She does not like the idea, as she has used it in the past and explained that she then needed "a stick of dynamite to get me going again". She denies fever, chills, n/v, abdominal pain, CP, palp, SOB. Review of Systems Review of Systems: All systems reviewed & are unremarkable except as noted in Subjective Physical Exam 2 Constitutional: WD/WN, vitals as above no acute distress Respiratory: normal respiratory effort, lungs clear to auscultation Cardiovascular: Rate/Rhythm: + tachycardic Heart Sounds: normal S1 and normal S2; no gallop, no murmur and no cardiac rub Gastrointestinal (Abdomen): normal bowel sounds, soft, nontender, no hepatosplenomegaly Inspection/Auscultation: abdomen normal to inspection and normal bowel sounds; abdomen not distended Percussion/Palpation: + abdomen tender (mild tenderness at both lower quadrants) Skin: no rashes, warm and dry Psychiatric: A+Ox3, euthymic affect Results & Data Results & Data ([facility]) Vital Signs (Past 12 Hours) Vital Signs Temp Pulse Resp BP BP Pulse Ox 02/15/20 08:05 93 H 158/81 H 02/15/20 07:57 36.5 C 111 H 19 178/82 H 93 Resident Activity Tracking Resident Involvement: Resident Care Provided Care Provided: Adult Hospital Medicine
[2020-02-15] MEDS: metroNIDAZOLE 500 MG TAB PO SCH ×2 (14:17→20:30)
[2020-02-15] MEDS ORDERED: VANCOMYCIN TROUGH ONE (15:30)
--- NOTE | 2020-02-15 18:52 | Billing Data ---
Date of Service February 15, 2020 Coding Level of Care Code 45164 Subseq Hosp Care Lvl 2
[2020-02-15] MEDS: CIPROFLOXACIN 500 MG TAB PO SCH (20:31)
[2020-02-16] MEDS ORDERED: PROMETHAZINE HCL 12.5 MG/10 ML UDP PO PRN (09:03)
[2020-02-16] MEDS: PANTOprazole 40 MG TAB PO SCH (09:41)
[2020-02-16] MEDS: ASPIRIN 81 MG ECTAB PO SCH ×2 (09:41→20:57)
[2020-02-16] MEDS: CALCIUM CARBONATE 1250MG TAB PO SCH ×3 (09:41→20:57)
[2020-02-16] MEDS: HEPARIN SOD 5,000 UNIT/0.5 ML VIAL SQ SCH ×2 (09:41→20:58)
[2020-02-16] MEDS: lisinopril 40 MG TAB PO SCH (09:41)
[2020-02-16] MEDS: CIPROFLOXACIN 500 MG TAB PO SCH (09:41)
[2020-02-16] MEDS: LACTOBACILLUS ACIDOPHILUS 1 GM PACK PO SCH ×3 (09:41→17:08)
[2020-02-16] MEDS: metroNIDAZOLE 500 MG TAB PO SCH ×3 (09:41→20:58)
[2020-02-16 09:44] LABS: Mean Corpuscular Hgb Conc 32.7 g/dL (32-36); Mean Platelet Volume 9.7 fL (7.4-10.4); Platelet Count 443 K/uL (130-400)
[2020-02-16 10:06] LABS: Basophils # (auto) 0.03 K/uL (0-0.2); Basophils % (auto) 0.2 %; Eosinophils # (auto) 0.21 K/uL (0-0.5); Eosinophils % (auto) 1.2 %; Hematocrit (blood only) 32.4 % (37-47); Hemoglobin 10.6 g/dL (12.0-16.0); Immature Granulocytes # (auto) 0.12 K/uL (0.00-0.02); Immature Granulocytes % (auto) 0.7 %; Lymphocytes # (auto) 1.55 K/uL (1.2-3.4); Lymphocytes % (auto) 8.6 %; Mean Corpuscular Hemoglobin 28.4 pg (25-34); Mean Corpuscular Volume 86.9 fL (80-100); Monocytes # (auto) 0.99 K/uL (0.11-0.59); Monocytes % (auto) 5.5 %; Neutrophils % (auto) 83.8 %; RDW Coefficient of Variation 13.8 % (11.5-14.5); RDW Standard Deviation 44.1 fL (36.4-46.3); Red Blood Count 3.73 M/uL (4.2-5.4)
[2020-02-16 10:08] LABS: BUN Creatinine Ratio 17.6 (10-20); Calcium 8.7 mg/dl (8.5-10.1); Creatinine Clr Calc Pharmacy 50.6 ml/min; Est GFR (African American) 76.1; Est GFR (Non-African American) 65.6; Potassium 3.3 mmol/L (3.5-5.1)
[2020-02-16] MEDS: CEFDINIR 300 MG CAP PO SCH ×2 (11:29→20:57)
--- NOTE | 2020-02-16 15:29 | Hospitalist Progress Note ---
Date of Service February 16, 2020 Assessment & Plan (1) Sepsis: Roopa Alonso is a 79 yo female with h/o HTN, GERD and recent right TKA on 02/04 who presents to [facility] ED on 02/11 for one day of fever/chills (measured up to 100.7F at home), nausea and worsening abdominal pain. Sepsis - hypotensive/tachycardic, elevated WBC 20.5 with neutrophilic predominance and left shift, lactate 4.3 --> 5.3 --> 2.2 - CXR showed right perihilar airspace opacities - CT abd/pelv showed ileus, possible colitis, possible gastritis, distended/fluid-filled esophagus - MRSA nares negative, C.diff Ag negative, blood cx neg, Urine cx neg, stool cx negative - Discontinued Vancomycin as it seems more likely that the sepsis was secondary to colitis--never had pneumonia sxs, knee shows no signs of infection - D/c'd cefepime IV--switched to PO cipro and flagyl (02/14) - Pt not tolerating cipro--switched to cefdinir 300mg PO BID (02/15) - Pt still having some diarrhea with incontinence and in general not feeling fully recovered--will keep on PO abx and monitor clinically - trend CBC daily Ileus - only 1 BM since right TKA one week ago, CT abd/pelv findings as stated above, associated nausea/heartburn/regurgitation - suspect secondary to narcotic pain medications - fleet enema given in the ED--patient has had multiple BMs since - PRN fleet enema/Miralax ordered - patient having many loose BMs after enema - Likely her diarrhea is also infectious in nature and it has been improving to some degree - Offered Imodium to help but she prefers not to because she has had trouble with resulting constipation in the past - follow clinically Elevated Troponin (resolved) - Troponin 0.048 on admission - no chest pain or ST/T changes on EKG - suspect demand ischemia secondary to sepsis - Troponin negative (02/13) - PRN EKG for chest pain RAMON (resolved) - suspect pre-renal injury secondary to sepsis - Cr back WNL - Lisinopril restarted on 02/15 AM - trend BMP daily HTN - Patient having some hypertensive readings today - Home Lisinopril restarted as patient having elevated BPs GERD - Protonix 20 mg PO daily per hospital formulary FEN/GI: Regular, lactose intolerant DVT Prophylaxis: Heparin 5000 units SQ Q12H Code Status: Conditional Code - no invasive airway or mechanical ventilation, but wants chest compressions/defibrillation/other parts of ACLS algorithm Disposition: Med/surg (2) Acute hypotension: (3) Leukocytosis: (4) Pneumonia: (5) Ileus: (6) History of total right knee replacement: (7) Hypertension: (8) GERD (gastroesophageal reflux disease): (9) Acute kidney injury: (10) Elevated troponin: Admission and Anticipated Discharge Date Admission Date: February 12, 2020 Supervising Physician Co-Signing Physician Notes I personally examined the patient and verified all ellington points of history and exam, discussed case, and agree with decision making with Dr Morales seen twice today. this AM notes that she felt like she was going to pass out after taking AM antibiotic, but now feels better. doesn't know if it was the cipro or flagyl that made her feel that way, but notes that approx 12 years ago after her hysterectomy they sent her home with "cipro, but it wasn't just cipro, i think it was ciprocillin, and i can't take cillins" - after we discuss probabilities - seems most likely cipro causing gi upset leading to a bit of a vagal response. later revisited. tolerating omnicef and flagyl well, but had bad abdominal cramping/diarrhea and some fecal incontinence still. vitals noted nad heent nc at mmm breathing unlabored no accessory muscles good effort skin no rashes no pallor or icterus neuro no focal deficits sepsis - colitis on CT fits best w clinical picture - seems to be improving, albeit with some ups and downs. if pneumonia is real at all it is likely aspiration (she noted lots of small vomits prior to admission as well) and very low likelihood MRSA - now off vanco. seems to have not tolerated cipro - will change to cefdinir flagyl and follow. given ongoing pain, will continue to follow in-house. questionable pneumonia - possible aspiration pneumonia as above noted. low risk for MRSA pneumonia. abx for colitis will cover this as well otherwise as above. troponin likely represents mild demand myocardial ischemia. hopefully home tomorrow heparin for DVT proph Subjective Patient seen today at bedside and reported that she was not tolerating ciprofloxacin very well. She said she felt nauseous with it and got sweaty/clammy. She still reports continued diarrhea with incontinence and says she does have some abdominal pain sometimes right before she is about to have a BM. Seen again in the afternoon after she received doses of cefdinir and flagyl. She had another episode of diarrhea with incontinence and abd pain. No fever, vomiting, CP, palp, SOB. Review of Systems Review of Systems: All systems reviewed & are unremarkable except as noted in Subjective Physical Exam Constitutional: WD/WN, vitals as above no acute distress Respiratory: normal respiratory effort, lungs clear to auscultation Cardiovascular: RRR, no murmur, no edema Heart Sounds: normal S1 and normal S2 Gastrointestinal (Abdomen): normal bowel sounds, soft, nontender, no hepatosplenomegaly Skin: no rashes, warm and dry Psychiatric: A+Ox3, euthymic affect Results & Data Results & Data ([facility]) Vital Signs (Past 12 Hours) Vital Signs Temp Pulse Resp BP Pulse Ox 02/16/20 07:27 36.6 C 94 H 18 157/71 H 94 Resident Activity Tracking Resident Involvement: Resident Care Provided Care Provided: Adult Hospital Medicine
--- NOTE | 2020-02-16 17:07 | Billing Data ---
Date of Service February 16, 2020 Coding Level of Care Code 19098 Subseq Hosp Care Lvl 3
[2020-02-17 06:42] LABS: Hematocrit (blood only) 29.8 % (37-47); Hemoglobin 9.8 g/dL (12.0-16.0); Mean Corpuscular Hemoglobin 28.3 pg (25-34); Mean Corpuscular Hgb Conc 32.9 g/dL (32-36); Mean Corpuscular Volume 86.1 fL (80-100); Mean Platelet Volume 9.7 fL (7.4-10.4); Platelet Count 408 K/uL (130-400); RDW Coefficient of Variation 13.8 % (11.5-14.5); RDW Standard Deviation 43.5 fL (36.4-46.3); Red Blood Count 3.46 M/uL (4.2-5.4); White Blood Count 16.33 K/uL (4.8-10.8)
[2020-02-17 07:03] LABS: Basophils # (auto) 0.07 K/uL (0-0.2); Basophils % (auto) 0.4 %; Eosinophils # (auto) 0.31 K/uL (0-0.5); Eosinophils % (auto) 1.9 %; Immature Granulocytes # (auto) 0.18 K/uL (0.00-0.02); Immature Granulocytes % (auto) 1.1 %; Lymphocytes # (auto) 1.81 K/uL (1.2-3.4); Lymphocytes % (auto) 11.1 %; Monocytes # (auto) 1.55 K/uL (0.11-0.59); Monocytes % (auto) 9.5 %; Neutrophils # (auto) 12.41 K/uL (1.4-6.5)
[2020-02-17 07:13] LABS: Albumin Level 2.5 gm/dl (3.4-5.0); BUN Creatinine Ratio 21.2 (10-20); Calcium 8.6 mg/dl (8.5-10.1); Creatinine Clr Calc Pharmacy 58.9 ml/min; Est GFR (African American) 91.4; Est GFR (Non-African American) 78.9; Potassium 3.1 mmol/L (3.5-5.1)
[2020-02-17 07:16] LABS: Albumin Globulin Ratio 0.6 (0.9-2); Bilirubin,Total 0.8 mg/dl (0.2-1); Total Protein 6.5 gm/dl (6.4-8.2)
[2020-02-17] MEDS ORDERED: POTASSIUM CHLORIDE CRTAB 20 MEQ TABCR PO STA ×2 (07:50)
[2020-02-17] MEDS: ASPIRIN 81 MG ECTAB PO SCH ×2 (08:20→20:56)
[2020-02-17] MEDS: LACTOBACILLUS ACIDOPHILUS 1 GM PACK PO SCH ×3 (08:20→17:05)
[2020-02-17] MEDS: lisinopril 40 MG TAB PO SCH (08:21)
[2020-02-17] MEDS: PANTOprazole 40 MG TAB PO SCH (08:21)
[2020-02-17] MEDS: metroNIDAZOLE 500 MG TAB PO SCH ×3 (08:21→20:56)
[2020-02-17] MEDS: HEPARIN SOD 5,000 UNIT/0.5 ML VIAL SQ SCH ×2 (08:21→20:56)
[2020-02-17] MEDS: CEFDINIR 300 MG CAP PO SCH ×2 (08:21→20:56)
[2020-02-17] MEDS: CALCIUM CARBONATE 1250MG TAB PO SCH ×2 (08:28→20:55)
--- NOTE | 2020-02-17 19:49 | Hospitalist Progress Note ---
Date of Service February 17, 2020 Assessment & Plan (1) Sepsis: Roopa Alonso is a 79 yo female with h/o HTN, GERD and recent right TKA on 02/04 who presents to [facility] ED on 02/11 for one day of fever/chills (measured up to 100.7F at home), nausea and worsening abdominal pain. Sepsis - hypotensive/tachycardic, elevated WBC 20.5 with neutrophilic predominance and left shift, lactate 4.3 --> 5.3 --> 2.2 - CXR showed right perihilar airspace opacities - CT abd/pelv showed ileus, possible colitis, possible gastritis, distended/fluid-filled esophagus - MRSA nares negative, C.diff Ag negative, blood cx neg, Urine cx neg, stool cx negative - Discontinued Vancomycin as it seems more likely that the sepsis was secondary to colitis--never had pneumonia sxs, knee shows no signs of infection - D/c'd cefepime IV--switched to PO cipro and flagyl (02/14) - Pt not tolerating cipro--switched to cefdinir 300mg PO BID (02/15) - Pt still having some diarrhea with incontinence and in general not feeling fully recovered--will keep on PO abx and monitor clinically - Will start patient on metamucil today (02/16) as stool-bulking agent - trend CBC daily Hypokalemia - Potassium 3.1 today (has been downtrending) - Potassium repleted - Will continue to monitor BMP qAM Ileus - only 1 BM since right TKA one week ago, CT abd/pelv findings as stated above, associated nausea/heartburn/regurgitation - suspect secondary to narcotic pain medications - fleet enema given in the ED--patient has had multiple BMs since - PRN fleet enema/Miralax ordered - patient having many loose BMs after enema - Negative c. diff 02/11 - Offered Imodium to help but she prefers not to because she has had trouble with resulting constipation in the past - follow clinically Elevated Troponin (resolved) - Troponin 0.048 on admission - no chest pain or ST/T changes on EKG - suspect demand ischemia secondary to sepsis - Troponin negative (02/13) - PRN EKG for chest pain RAMON (resolved) - suspect pre-renal injury secondary to sepsis - Cr back WNL - Lisinopril restarted on 02/15 AM - trend BMP daily HTN - Patient having some hypertensive readings today - Home Lisinopril restarted as patient having elevated BPs GERD - Protonix 20 mg PO daily per hospital formulary FEN/GI: Regular, lactose intolerant DVT Prophylaxis: Heparin 5000 units SQ Q12H Code Status: Conditional Code - no invasive airway or mechanical ventilation, but wants chest compressions/defibrillation/other parts of ACLS algorithm Disposition: Med/surg (2) Acute hypotension: (3) Leukocytosis: (4) Pneumonia: (5) Ileus: (6) History of total right knee replacement: (7) Hypertension: (8) GERD (gastroesophageal reflux disease): (9) Acute kidney injury: (10) Elevated troponin: Admission and Anticipated Discharge Date Admission Date: February 12, 2020 Supervising Physician Co-Signing Physician Notes Patient seen and examined with PGY-1 Dr. Dunbar. Agree with history, exam findings, assessment and plan of care as outlined: 79 year old female with history of HTN, GERD and recent right TKA admitted with fever, chills, nausea, abdominal pain. Continues to have loose stools and nausea. No vomiting. Nausea is improving. VS and nursing notes reviewed. Heart rate is tachycardic but regular. Hypoactive bowel sounds. Abdomen soft, nontender, nondistended. Labs and imaging reviewed. 1. Sepsis secondary to colitis/gastritis. Currently on cefdinir and flagyl. Continue. With persistent loose stools, will do a trial of Metamucil to help bulk up stools. Hopeful that this will improve. 2. Tachycardia. Appears a bit dry on exam. Oral fluids. Ok for fluid bolus over night if needed. 3. Post-operative ileus following right TKA. Likely secondary to opioid pain medication. Now with loose stools after enema. 4. Pneumonia found on CXR, but more likely this is aspiration. Abx above will cover. 5. HTN. Continue home Lisinopril. 6. Elevated troponin and AKIresolved. Dispo: pending clinical improvement. Subjective Patient seen and evaluated at bedside this afternoon. She states that she overall feels "okay" and that she is really hoping to be d/c home soon. Specifically, patient notes that tomorrow is the 2 (?) year anniversary of her daughter's and she would like to be home with her granddaughters. However, upon further discussion, patient does report that she is not back to baseline. She complains of persistent diarrhea, every 1 hour. She is "sometimes" able to make it to the bathroom but other times she is incontinent of the stool. Patient also complains of generalized diffuse abdominal pain and nausea. She has had no episodes of vomiting. Patient denies fever, chills, CP, or SOB. Review of Systems Constitutional: no fever and no chills Respiratory: no cough and no dyspnea Cardiovascular: no chest pain Gastrointestinal: + abdominal pain, + nausea and + diarrhea/loose stools; no vomiting Physical Exam Physical Exam: GENERAL: Very pleasant female in no acute distress. Well developed and well nourished. EYES: EOMI. Anicteric sclerae. HENT: Dry mucous membranes. RESPIRATORY: Clear to auscultation bilaterally. No wheezing, rales, or rhonchi. CARDIOVASCULAR: Regular rate and rhythm. No murmurs. ABDOMEN: Soft, non-tender and non-distended. Hypoactive bowel sounds. EXTREMITIES: Right lower extremity with midline scar over knee s/p right total knee. No tenderness to palpation to b/l calf. PSYCHIATRIC: Cooperative. Appropriate mood and affect. Results & Data Results & Data ([facility]) Vital Signs (Past 12 Hours) Vital Signs Temp Pulse Resp BP Pulse Ox 02/17/20 16:06 36.3 C L 115 H 18 131/78 92 Resident Activity Tracking Resident Involvement: Resident Care Provided Care Provided: Adult [place] [facility] Medicine
[2020-02-17] MEDS: PSYLLIUM 58.6% POWDER PACKET PO SCH (20:53)
[2020-02-18 06:48] LABS: Hematocrit (blood only) 31.5 % (37-47); Hemoglobin 10.2 g/dL (12.0-16.0); Mean Corpuscular Hgb Conc 32.4 g/dL (32-36); Mean Corpuscular Volume 86.5 fL (80-100); Mean Platelet Volume 9.8 fL (7.4-10.4); Platelet Count 423 K/uL (130-400); RDW Coefficient of Variation 14.2 % (11.5-14.5); RDW Standard Deviation 44.8 fL (36.4-46.3); Red Blood Count 3.64 M/uL (4.2-5.4); White Blood Count 14.82 K/uL (4.8-10.8)
[2020-02-18 07:10] LABS: Basophils # (auto) 0.07 K/uL (0-0.2); Basophils % (auto) 0.5 %; Eosinophils # (auto) 0.37 K/uL (0-0.5); Eosinophils % (auto) 2.5 %; Immature Granulocytes # (auto) 0.35 K/uL (0.00-0.02); Immature Granulocytes % (auto) 2.4 %; Lymphocytes # (auto) 2.49 K/uL (1.2-3.4); Lymphocytes % (auto) 16.8 %; Monocytes # (auto) 1.42 K/uL (0.11-0.59); Monocytes % (auto) 9.6 %; Neutrophils # (auto) 10.12 K/uL (1.4-6.5); Neutrophils % (auto) 68.2 %
[2020-02-18 07:20] LABS: BUN Creatinine Ratio 19.4 (10-20); Calcium 8.7 mg/dl (8.5-10.1); Creatinine Clr Calc Pharmacy 58.1 ml/min; Est GFR (African American) 89.9; Est GFR (Non-African American) 77.6; Potassium 3.3 mmol/L (3.5-5.1)
[2020-02-18] MEDS: CEFDINIR 300 MG CAP PO SCH ×2 (08:29→20:56)
[2020-02-18] MEDS: lisinopril 40 MG TAB PO SCH (08:29)
[2020-02-18] MEDS: CALCIUM CARBONATE 1250MG TAB PO SCH ×2 (08:30→20:53)
[2020-02-18] MEDS: HEPARIN SOD 5,000 UNIT/0.5 ML VIAL SQ SCH ×2 (08:30→20:56)
[2020-02-18] MEDS: LACTOBACILLUS ACIDOPHILUS 1 GM PACK PO SCH ×3 (08:30→16:57)
[2020-02-18] MEDS: PANTOprazole 40 MG TAB PO SCH (08:30)
[2020-02-18] MEDS: PSYLLIUM 58.6% POWDER PACKET PO SCH (08:31)
[2020-02-18] MEDS: metroNIDAZOLE 500 MG TAB PO SCH ×3 (08:31→20:53)
[2020-02-18] MEDS: ASPIRIN 81 MG ECTAB PO SCH ×2 (08:31→20:56)
[2020-02-18] MEDS ORDERED: POTASSIUM CHLORIDE CRTAB 20 MEQ TABCR PO STA ×2 (09:04)
[2020-02-18] MEDS ORDERED: SODIUM CHLORIDE 0.9% 1000ML 1,000 ML IV ONE (09:47)
--- NOTE | 2020-02-18 13:45 | Communication Note ---
Date of Service: February 18, 2020 Patient seen today for her 2-week postoperative visit. Patient was scheduled to see Dr. Daniels's PA today in the office however, with her recent admission she was unable to attend. Currently she is sitting up at the edge of the bed side. No complaints at this time. Hoping to go home today. She states her right knee has been feeling good and she has been doing well. Incision is clean, dry, and intact. She does have a little bit of remaining Prineo mesh. There is no erythema. She has swelling not unusual for the surgery. Calves are soft nontender. Flexion past 90. Discussed with the patient that she should restart her physical therapy in the outpatient setting when she returns home. Continue the LOC hose for another 2 weeks. Continue aspirin p.o. twice daily for another 2 weeks. Patient may shower as needed. I discussed with her that she is not to soak the wound or do any tub baths at this time. No direct shower pressure to the wound itself. Follow-up with Dr. Daniels with her prescheduled appointment on March 16.
[2020-02-18] MEDS: MAGNESIUM SULFATE / D5W 1 GM/100 ML BAG IV SCH ×2 (14:51→16:54)
--- NOTE | 2020-02-18 18:06 | Hospitalist Progress Note ---
Date of Service February 18, 2020 Assessment & Plan (1) Sepsis: Roopa Alonso is a 79 yo female with h/o HTN, GERD and recent right TKA on 02/04 who presents to [facility] ED on 02/11 for one day of fever/chills (measured up to 100.7F at home), nausea and worsening abdominal pain. Sepsis - hypotensive/tachycardic, elevated WBC 20.5 with neutrophilic predominance and left shift, lactate 4.3 --> 5.3 --> 2.2 - CXR showed right perihilar airspace opacities - CT abd/pelv showed ileus, possible colitis, possible gastritis, distended/fluid-filled esophagus - MRSA nares negative, C.diff Ag negative, blood cx neg, Urine cx neg, stool cx negative - Discontinued Vancomycin as it seems more likely that the sepsis was secondary to colitis--never had pneumonia sxs, knee shows no signs of infection - D/c'd cefepime IV--switched to PO cipro and flagyl (02/14) - Pt not tolerating cipro--switched to cefdinir 300mg PO BID (02/15) - Pt still having some diarrhea with incontinence and in general not feeling fully recovered--will keep on PO abx and monitor clinically - Metamucil started 02/16 -- patient tolerating this well - trend CBC daily -- Patient initially indicated that she wanted to leave today "no matter what" but after further discussion, recommendation for IV fluids and electrolyte repletion, and her daughter not being able to drive at night, patient is agreeable to stay overnight for further evaluation, monitoring, and AM labs Hypokalemia/Hypomagnesia - Potassium 3.1 on 02/16 (has been downtrending) - Potassium repleted with 60 mEq - Slightly improved today to 3.3 -- again, repleted with 60 mEq - Patient also found to have hypomagnesia today (02/17) at 1.6 -- repleted with 2g Mag - Will continue to monitor BMP qAM Ileus - only 1 BM since right TKA one week ago, CT abd/pelv findings as stated above, associated nausea/heartburn/regurgitation - suspect secondary to narcotic pain medications - fleet enema given in the ED--patient has had multiple BMs since - PRN fleet enema/Miralax ordered - patient having many loose BMs after enema - Negative c. diff 02/11 - Offered Imodium to help but she prefers not to because she has had trouble with resulting constipation in the past - follow clinically Elevated Troponin (resolved) - Troponin 0.048 on admission - no chest pain or ST/T changes on EKG - suspect demand ischemia secondary to sepsis - Troponin negative (02/13) - PRN EKG for chest pain RAMON (resolved) - suspect pre-renal injury secondary to sepsis - Cr back WNL - Lisinopril restarted on 02/15 AM - trend BMP daily HTN - Patient having some hypertensive readings today - Home Lisinopril restarted as patient having elevated BPs GERD - Protonix 20 mg PO daily per hospital formulary FEN/GI: Regular, lactose intolerant DVT Prophylaxis: Heparin 5000 units SQ Q12H Code Status: Conditional Code - no invasive airway or mechanical ventilation, but wants chest compressions/defibrillation/other parts of ACLS algorithm Disposition: Med/surg (2) Acute hypotension: (3) Leukocytosis: (4) Pneumonia: (5) Ileus: (6) History of total right knee replacement: (7) Hypertension: (8) GERD (gastroesophageal reflux disease): (9) Acute kidney injury: (10) Elevated troponin: Admission and Anticipated Discharge Date Admission Date: February 12, 2020 Supervising Physician Co-Signing Physician Notes Patient seen and examined with PGY-1 Dr. Dunbar. Agree with history, exam findings, assessment and plan of care as outlined: 79 year old female with history of HTN, GERD and recent right TKA admitted with fever, chills, nausea, abdominal pain. Continues to have loose stools but reports that it is less frequent than before (every two hours rather than every hour). No vomiting. Denies dizziness, lightheaded, heart racing/palpitations, dyspnea. Did decline flagyl today because she felt that it was making her loose stools worse. VS and nursing notes reviewed. Heart rate is tachycardic but regular. Hypoactive bowel sounds. Abdomen soft, nontender, nondistended. Labs and imaging reviewed. 1. Sepsis secondary to colitis/gastritis. Currently on cefdinir and flagyl. Continue. With persistent loose stools, will do a trial of Metamucil to help bulk up stools. Hopeful that this will improve. 2. Tachycardia. s/p 1L bolus today. Encourage oral intake, especially given her GI loses. 3. Electrolyte derangement. Due to GI loses. Repleting. 4. Post-operative ileus following right TKA. Likely secondary to opioid pain medication. Now with loose stools after enema. 5. Pneumonia found on CXR, but more likely this is aspiration. Abx above will cover. 6. HTN. Continue home Lisinopril. Dispo: pending clinical improvement. Subjective Patient seen and evaluated at bedside this morning. Reports that she is overall feeling better. Patient eager for d/c and is requesting d/c home today. However, she does report persistent abdominal cramping and diarrhea. Diarrhea has reportedly decreased in frequency from 1x/hour to once every 2 hours. There is also persistent intermittent fecal incontinence described more-so as frequent "wet farts." She also reports dry mouth and states that she has not been able to drink as much water as she was hoping to since last night. Patient denies nausea, vomiting, fever, chills, CP, SOB, lightheadedness, or dizziness. Review of Systems Constitutional: no fever and no chills Respiratory: no cough and no dyspnea Cardiovascular: no chest pain Gastrointestinal: + abdominal pain (cramping) and + diarrhea/loose stools; no nausea and no vomiting Genitourinary: no dysuria Physical Exam Physical Exam: GENERAL: Very pleasant female in no acute distress. Well developed and well nourished. EYES: EOMI. Anicteric sclerae. HENT: Dry mucous membranes. RESPIRATORY: Clear to auscultation bilaterally. No wheezing, rales, or rhonchi. CARDIOVASCULAR: Tachycardic but regular rhythm. No murmurs. ABDOMEN: Soft, non-tender and non-distended. Hypoactive bowel sounds throughout abdomen. EXTREMITIES: Right lower extremity with midline scar over knee s/p right total knee. No tenderness to palpation to b/l calf. PSYCHIATRIC: Cooperative. Appropriate mood and affect. Results & Data Results & Data ([facility]) Vital Signs (Past 12 Hours) Vital Signs Temp Pulse Resp BP Pulse Ox 02/18/20 15:31 36.4 C L 104 H 16 138/69 95 02/18/20 07:15 36.3 C L 105 H 16 160/74 H 95 Resident Activity Tracking Resident Involvement: Resident Care Provided Care Provided: Adult [facility] Medicine
[2020-02-19] MEDS: LACTOBACILLUS ACIDOPHILUS 1 GM PACK PO SCH ×2 (07:43→13:13)
[2020-02-19] MEDS: CEFDINIR 300 MG CAP PO SCH (07:43)
[2020-02-19] MEDS: PSYLLIUM 58.6% POWDER PACKET PO SCH (07:44)
[2020-02-19] MEDS: CALCIUM CARBONATE 1250MG TAB PO SCH (07:44)
[2020-02-19] MEDS: ASPIRIN 81 MG ECTAB PO SCH (07:44)
[2020-02-19] MEDS: HEPARIN SOD 5,000 UNIT/0.5 ML VIAL SQ SCH (07:44)
[2020-02-19] MEDS: metroNIDAZOLE 500 MG TAB PO SCH ×2 (07:44→13:13)
[2020-02-19] MEDS: PANTOprazole 40 MG TAB PO SCH (07:44)
[2020-02-19] MEDS: lisinopril 40 MG TAB PO SCH (07:45)
[2020-02-19 10:55] LABS: Basophils # (auto) 0.04 K/uL (0-0.2); Basophils % (auto) 0.4 %; Eosinophils # (auto) 0.35 K/uL (0-0.5); Eosinophils % (auto) 3.3 %; Hematocrit (blood only) 32.6 % (37-47); Hemoglobin 10.4 g/dL (12.0-16.0); Immature Granulocytes # (auto) 0.28 K/uL (0.00-0.02); Immature Granulocytes % (auto) 2.6 %; Lymphocytes # (auto) 1.74 K/uL (1.2-3.4); Lymphocytes % (auto) 16.2 %; Mean Corpuscular Hemoglobin 27.9 pg (25-34); Mean Corpuscular Hgb Conc 31.9 g/dL (32-36); Mean Corpuscular Volume 87.4 fL (80-100); Mean Platelet Volume 9.5 fL (7.4-10.4); Monocytes # (auto) 1.07 K/uL (0.11-0.59); Neutrophils # (auto) 7.27 K/uL (1.4-6.5); Neutrophils % (auto) 67.5 %; Platelet Count 428 K/uL (130-400); RDW Coefficient of Variation 14.4 % (11.5-14.5); RDW Standard Deviation 45.6 fL (36.4-46.3); Red Blood Count 3.73 M/uL (4.2-5.4); White Blood Count 10.75 K/uL (4.8-10.8)
[2020-02-19 11:29] LABS: BUN Creatinine Ratio 13.1 (10-20); Calcium 8.4 mg/dl (8.5-10.1); Creatinine Clr Calc Pharmacy 53.8 ml/min; Est GFR (African American) 81.8; Est GFR (Non-African American) 70.6; Potassium 4.1 mmol/L (3.5-5.1)
--- NOTE | 2020-02-19 17:49 | Discharge Summary ---
Date of Service February 19, 2020 Admission HPI Per Admitting Provider Roopa Alonso is a 79 yo female with h/o HTN, GERD and recent right TKA on 02/04 who presents to [facility] ED on 02/11 for one day of fever/chills (measured up to 100.7F at home), nausea and worsening abdominal pain. Patient denies chest pain/palpitations, SOB, cough, or wheezing since surgery. Her post-operative leg pain has been well controlled with PRN Percocet, although the patient believes this has made her abdominal pain worse due to lack of BM - only had one hard BM since surgery. Patient's granddaughter called EMS after patient felt like she was going to pass out when straining for a BM on the toilet. Patient was hypotensive and tachycardic when EMS arrived; she was given Zofran and Narcan x1 which led to mild improvement in VS but patient reportedly had mild tongue swelling after these medications - reports that tongue swelling is now mostly resolved. In the ED, patient was persistently hypotensive and tachycardic and was given several NSS boluses (total of 2L). She was also given Zofran, Benadryl and Reglan IV for nausea; fleet enema x1 for constipation. She had elevated WBC 20.5, uptrending lactate 4.3 --> 5.3, CXR showed right perihilar airspace opacities, CT abd/pelv showed ileus/colitis/gastritis/dilated esophagus - was given Vanc/Cefepime IV x1. Admission Exam Per Admitting Provider Constitutional: + ill appearing and + obese; no acute distress Eyes: PERRL, conjunctivae normal, anicteric sclerae Respiratory: + labored breathing (mild); no cough Auscultation: + diminished lung sounds (on right); no crackles and no wheezes Cardiovascular: Rate/Rhythm: regular rhythm and + tachycardic Heart Sounds: normal S1 and normal S2; no murmur Extremities: no edema Gastrointestinal (Abdomen): Inspection/Auscultation: abdomen normal to inspection and + hyperactive bowel sounds; abdomen not distended Percussion/Palpation: + abdomen tender (TTP throughout but worst in lower quadrants) and abdomen soft; no guarding Skin: no rashes, warm and dry Psychiatric: A+Ox3, euthymic affect Lymphatic: no cervical lymphadenopathy Principal Diagnosis sepsis Discharge Exam GENERAL: No acute distress. Well developed and well nourished. EYES: EOMI. Anicteric sclerae. HENT: Moist mucous membranes. RESPIRATORY: Clear to auscultation bilaterally. No wheezing, rales, or rhonchi. CARDIOVASCULAR: Regular rate and rhythm. No murmurs. ABDOMEN: Soft, non-tender and non-distended. Hypoactive bowel sounds. EXTREMITIES: No edema. Non-tender. SKIN: Warm, dry. No rashes or lesions. NEUROLOGIC: A/O x3. No focal neurological deficits. PSYCHIATRIC: Cooperative. Appropriate mood and affect. Discharge Data Allergies Allergy/AdvReac Type Severity Reaction Status Date / Time Penicillins Allergy Mild hives, Verified 02/12/20 20:42 dyspnea allopurinol Allergy Unknown diffuse Verified 02/12/20 20:42 body rash, flushing amoxicillin Allergy Unknown hives Verified 02/12/20 20:42 febuxostat Allergy Unknown eyes Verified 02/12/20 20:42 swelled shut Sulfa (Sulfonamide Allergy Unknown unknown Verified 02/12/20 20:42 Antibiotics) reaction lactose AdvReac Intermediate GI upset Verified 02/12/20 20:42 nickel AdvReac Mild skin Verified 02/12/20 20:42 redness naproxen AdvReac Unknown palpitation Verified 02/12/20 20:42 s Consultations 02/12/20 20:24 ED Decision to Admit Stat Ordered Studies 02/12/20 17:35 CT abd pelvis IV con only Stat CT angio chest PE protocol Stat Hospital Course (1) Sepsis: Roopa Alonso is a 79 yo female with h/o HTN, GERD and recent right TKA on 02/04 who presents to [facility] ED on 02/11 for one day of fever/chills (measured up to 100.7F at home), nausea and worsening abdominal pain. Sepsis - hypotensive/tachycardic, elevated WBC 20.5 with neutrophilic predominance and left shift, lactate 4.3 --> 5.3 --> 2.2 - CXR showed right perihilar airspace opacities - CT abd/pelv showed ileus, possible colitis, possible gastritis, distended/fluid-filled esophagus - MRSA nares negative, C.diff Ag negative, blood cx neg, Urine cx neg, stool cx negative - Discontinued Vancomycin as it seems more likely that the sepsis was secondary to colitis--never had pneumonia sxs, knee shows no signs of infection - D/c'd cefepime IV--switched to PO cipro and flagyl (02/14) - Pt not tolerating cipro--switched to cefdinir 300mg PO BID (02/15) - Pt still having some diarrhea with incontinence and in general not feeling fully recovered--will keep on PO abx and monitor clinically - Metamucil started 02/16 -- patient tolerating this well - trend CBC daily Hypokalemia/Hypomagnesia - Potassium 3.1 on 02/16 (has been downtrending) - Potassium repleted with 60 mEq - Slightly improved today to 3.3 -- again, repleted with 60 mEq - Patient also found to have hypomagnesia today (02/17) at 1.6 -- repleted with 2g Mag - Will continue to monitor BMP qAM Ileus - only 1 BM since right TKA one week ago, CT abd/pelv findings as stated above, associated nausea/heartburn/regurgitation - suspect secondary to narcotic pain medications - fleet enema given in the ED--patient has had multiple BMs since - PRN fleet enema/Miralax ordered - patient having many loose BMs after enema - Negative c. diff 02/11 - Offered Imodium to help but she prefers not to because she has had trouble with resulting constipation in the past - follow clinically Elevated Troponin (resolved) - Troponin 0.048 on admission - no chest pain or ST/T changes on EKG - suspect demand ischemia secondary to sepsis - Troponin negative (02/13) - PRN EKG for chest pain RAMON (resolved) - suspect pre-renal injury secondary to sepsis - Cr back WNL - Lisinopril restarted on 02/15 AM - trend BMP daily HTN - Patient having some hypertensive readings today - Home Lisinopril restarted on 02/15 as patient having elevated BPs GERD - Protonix 20 mg PO daily per hospital formulary FEN/GI: Regular, lactose intolerant DVT Prophylaxis: Heparin 5000 units SQ Q12H Code Status: Conditional Code - no invasive airway or mechanical ventilation, but wants chest compressions/defibrillation/other parts of ACLS algorithm (2) Acute hypotension: (3) Leukocytosis: (4) Pneumonia: (5) Ileus: (6) History of total right knee replacement: (7) Hypertension: (8) GERD (gastroesophageal reflux disease): (9) Acute kidney injury: (10) Elevated troponin: Total Time Total Time Spent Total Time Spent (In Minutes): See attending attestation Discharge Plan Discharge Items Patient Disposition: Home - Self-Care Reason For Visit: SEPSIS Discharge Diagnosis: intra abdominal infection, colitis, ileus secondary to narcotic use Activity: Resume your previous activity Non-emergency contact: Primary Care Provider Call non-emergency contact if: you have any medication questions, your symptoms worsen, your pain is not controlled, your pain is worsening and you have a fever Follow-up/Referrals: Madeline Suresh MD [Primary Care Provider] - Diet: Regular Addtl Attending Provider Instructions: Ms. Alonso, It was our pleasure to take care of you for your sepsis from your abdominal infection. We believe that you had something called colitis, or an infection of your intestinal wall. This infection was likely precipitated from your constipation causing bacteria that normally exist in your GI tract to cause a problem. This infection became quite severe and we needed to treat you for septic shock which is a large scale inflammatory response from a bad infection. Through fluid resuscitation and broad spectrum intravenous antibiotic administration we were able to treat your infection and at this point your diarrhea, labwork, abdominal pain, vital signs and oral intake have improved to the point that we feel safe to discharge you home. You will need to continue taking your oral antibiotics these antibiotics are cefdinir and metronidazole. These are the same medications we have discussed and that you have been on here in the hospital. We will also recommend that you follow up with your primary care provider in the next seven days so they can examine your abdomen and check your vital signs to make sure you are still getting better. If you find yourself feeling lightheaded, short of breath, feverish, dizzy or feeling like you're going to pass out please return to medical care urgently. Orthopedic surgery evaluated your knee incision and feel that everything is looking great and they would further recommend that you should restart your physical therapy in the outpatient setting when you return home. Continue the LOC hose for another 2 weeks. Continue to take aspirin 81 mg twice daily for another 2 weeks. you may shower as needed. You are not to soak the wound or do any tub baths at this time. No direct shower pressure to the wound itself. Follow-up with Dr. Daniels at your already scheduled appointment on March 16. Pending Studies at Discharge: No Stand-Alone Forms: My [facility], Smoking Cessation Medications and DC Order Prescriptions: New metronidazole 500 mg Tablet 500 mg PO TID 7 Days Qty: 21 RF: 0 cefdinir 300 mg Capsule 300 mg PO BID 7 Days Qty: 14 RF: 0 Metamucil (with sugar) 3.4 gram Powder In Packet 1 pkg PO QAM 14 Days Qty: 14 RF: 0 Continued ascorbic acid (vitamin C) [Vitamin C] 250 mg Tablet 250 mg PO BID RF: 0 calcium carbonate [Calcium 500] 500 mg calcium (1,250 mg) Tablet,Chewable 500 mg PO BID RF: 0 lisinopril 40 mg Tablet 40 mg PO QAM RF: 0 apple cider vinegar 500 mg Tablet 500 mg PO BID RF: 0 multivitamin Tablet,Chewable 1 tab PO BID RF: 0 omeprazole 20 mg Tablet,Disintegrat, Delay Rel 20 mg PO QAM RF: 0 turmeric 400 mg Capsule 400 mg PO QAM RF: 0 aspirin 81 mg Tablet,Delayed Release (Dr/Ec) 81 mg PO BID 30 Days Qty: 60 RF: 0 acetaminophen 500 mg Tablet 1,000 mg PO Q8 14 Days Qty: 84 RF: 0 polyethylene glycol 3350 [Miralax] 17 gram powder in packet 17 g PO DAILY PRN (Reason: constipation) Qty: 5 RF: 0 Discontinued doxycycline hyclate 100 mg capsule 100 mg PO BID 14 Days Qty: 28 RF: 1 clindamycin HCl 300 mg capsule 300 mg PO TID 7 Days Qty: 21 RF: 0 Discharge Orders: Discharge Order (Routine); Ordered 02/19/20 Ordered By: Sabas Dubon Admission Data Admit Date/Time: 02/12/20 22:23 Attending Provider: Eh Sanchez Admit Provider: Lucas Delong Primary Care Provider: Madeline Suresh Other Providers: [facility],Home Healthcare ; Aramis Wheatley Other Interventions: Discharge Summary Assessment (RN) Last Done: 02/19/20 15:59 Supervising Physician Co-Signing Physician Notes Patient seen and examined with PGY-1 Dr. Dunbar. Agree with history, exam findings, assessment and plan of care as outlined: 79 year old female with history of HTN, GERD and recent right TKA admitted with fever, chills, nausea, abdominal pain. Reports that her stooling is less frequent. Abdominal pain is improving. In itially declined labs this morning, but is willing to have them done after explaining the importance of the labs since she had electrolytes repleted and an elevated white count. She was declining flagyl because she felt that it made her sick. She is willing to take this temporarily since there are really no other great options for anaerobic coverage in the abdomen. Tolerating solid foods. VS and nursing notes reviewed. Heart rate is tachycardic but regular. Hypoactive bowel sounds. Abdomen soft, nontender, nondistended. Labs and imaging reviewed. 1. Sepsis secondary to colitis/gastritis. Currently on cefdinir and flagyl. Continue. Leukocytosis has resolved. 2. Tachycardia. improved. s/p fluid boluses. Encourage oral intake, especially given her GI loses. 3. Electrolyte derangement is improved. 4. Post-operative ileus following right TKA. Likely secondary to opioid pain medication. Now with loose stools after enema. 5. Pneumonia found on CXR, but more likely this is aspiration. Abx above will cover. 6. HTN. Continue home Lisinopril. Dispo: discharge home today. I personally spent 40 minutes discharge planning for this patient Resident Activity Tracking Resident Involvement: Resident Care Provided Care Provided: Adult Hospital Medicine
--- NOTE | 2020-02-26 07:12 | Coding Query ---
To promote full compliance with coding requirements relating to patient care, provider participation is requested in all cases of network relay tester uncertainty. Please assist us with the question(s) below: Coding Question(s): The diagnosis below was documented in the Progress Notes on 02/13, 02/14, 02/15 , 02/17 and Discharge Summary. Please indicate if it is still a possible diagnosis or ruled out. Physician's Response(s): ASPIRATION PNEUMONIA ( ) Diagnosed and POA ( ) Diagnosed and not POA ( ) Ruled out (x ) Other (please specify) - possibly present and if so POA MTDD
== END 2020-02-19 17:30 | disposition home health service (06) | DRG 871 ==
LOC: ED 17:22 → SUATTDRO 22:23 → 2S 02-13 → 3N 02-14 15:19